=== PATIENT | female | born 1985 | race Caucasian/White ===

== ENCOUNTER 2016-09-23 16:26 | Emergency (ER) | payer SELFPAY ==
[~2016-09-23] VITALS: Ht 165.1 cm; Wt 70.9 kg
[~2016-09-23 16:26] MED LIST: MTR600X PO; OXYC5TAB PO
[2016-09-23 16:44] VITALS: TEMP 36.7; Ht 165.1 cm; Wt 70.9 kg
[2016-09-23] MEDS ORDERED: PRENTAB26 PO (16:47)
[2016-09-23] MEDS ORDERED: SODIUM CHLORIDE 0.9% 1000ML 1,000 ML IV STA ×2 (18:11)
[2016-09-23] MEDS ORDERED: ONDANSETRON INJ 2 MG/ML 2 ML VIAL IV STA (18:11)
[2016-09-23] MEDS ORDERED: TRAZ50TA35 PO (18:20)
[2016-09-23 18:45] LABS: BASO % 0.1 %; BASO ABS # 0.02 K/uL (0-0.2); COMPLETE YES; HEMATOCRIT 45.4 % (37-47); IG% 0.2 %; MEAN CELL VOLUME 88.5 fL (80-100); MEAN CORPUSCULAR HGB CONC 33.9 g/dl (32-36); MEAN PLATELET VOLUME 9.4 fL (7.4-10.4); NEUT % 88.7 %; PLATELET COUNT 299 K/uL (130-400); RED BLOOD COUNT 5.13 M/uL (4.2-5.4); WHITE BLOOD COUNT 14.35 K/uL (4.8-10.8)
[2016-09-23 19:06] LABS: PREG INTERNAL NEGATIVE QC NEG CLEAR BACKGROUND; PREG INTERNAL POSITIVE QC POS CONTROL LINE
[2016-09-23 19:18] LABS: ALB/GLOB RATIO 1.3 (0.9-2); BUN/CREATININE RATIO 21.1 (10-20); CALCIUM 9.1 mg/dl (8.5-10.1); CREATININE 0.97 mg/dl (0.60-1.20); POTASSIUM 3.8 mmol/L (3.5-5.1)
--- NOTE | 2016-09-23 19:25 | EMERGENCY ROOM VISIT NOTE ---
History First contact with patient: 18:00 Chief Complaint: DEHYDRATION Stated Complaint: DEHYDRATION, PAIN, VOMITTING Nursing Triage Summary: Patient states has been having N/V for the last 2 days. Patient states has not been able to void and has been constipated. Patient states has not been producting breast milk as much recently also. Denies diarrhea. History of Present Illness The patient is a 31 year old female who presents to the Emergency Room with complaints of vomiting and dehydration. The patient reports that she has been vomiting for the past 24 hours and has had a decreased appetite for 48 hours. She does report some abdominal cramping prior to her episodes of vomiting. She denies any diarrhea and has not had a bowel movement since the symptoms began. She also reports she has had decreased urination. She reports associated body aches and mild nasal congestion. The patient reports that her son was here 2 days ago and had not been eating and she is unsure if her symptoms are related. She rates her overall discomfort a 7/10. She has not been taking any medications for her pain. She denies any chest pain, shortness of breath, fevers/chills, headaches or neck pain. Review of Systems A complete 10-point Review of Systems was discussed with the patient, with pertinent positives and negatives listed in the History of Present Illness. All remaining Review of Systems questions can be considered negative unless otherwise specified. Past Medical/Surgical History Medical Problems: (1) Abdominal pain affecting (2) Asthma (3) Attention deficit hyperactivity disorder (4) Bipolar disorder (5) Cramping affecting , antepartum (6) Ectopic (7) Migraines (8) Obsessive-compulsive disorder (9) (10) Repair of inguinal hernia (11) RLQ abdominal pain (12) Status post fall (13) Status post fall (14) Tonsillectomy (15) Traumatic injury during in third trimester (16) Vaginal delivery (17) Vaginal discharge during in second trimester (18) von Willebrand disorder Family History Diabetes mellitus FH: heart disease FHx: gallbladder disease FHx: lung disease Hypertension Kidney disease Kidney stones Seizures Social History Smoking Status: Never Smoker Alcohol Use: occasionally Marital Status: Occupation Status: employed Current/Historical Medications Scheduled Control Pills ( Control Pills), 1 TAB PO HS Citalopram Hydrobromide (Celexa), 40 MG PO HS Fenugreek (Trigonella Foenum-G (Fenugreek), 1,220 MG PO HS Lamotrigine (Lamictal), 100 MG PO BID Multivit/Min/Iron/Fol Ac/Pren ( Vitamin), 1 TAB PO HS Ondasetron Odt (Zofran Odt), 4 MG SL Q6H Ranitidine (Zantac), 300 MG PO HS Trazodone Hcl (Trazodone), 50 MG PO HS Allergies Coded Allergies: Paroxetine (Verified Allergy, Severe, GOES CATATONIC, 03/10/16) Sumatriptan (Verified Allergy, Severe, BREATHING DIFFICULTIES AND BODY SPASM, 03/10/16) TOOK ONLY ONE DOSE FOR A MIGRAINE HEADACHE AND HAS NOT TAKEN ANY SINCE [place] [facility] (Verified Allergy, Intermediate, breathing problems- asthma flair ups, 03/10/16) Ethinyl Estradiol (Verified Allergy, Intermediate, breathing problems- asthma flair ups, 03/10/16) Levonorgestrel (Verified Allergy, Intermediate, breathing problems-asthma flair ups, 03/10/16) Bee Venom (Verified Allergy, Mild, SHORTNESS OF BREATH, 03/10/16) Dog Dander (Verified Allergy, Mild, SHORTNESS OF BREATH, 03/10/16) Tretinoin (Verified Allergy, Mild, facial flushing, 03/10/16) Physical Exam Vital Signs Date Time Temp Pulse Resp B/P Pulse Ox O2 Delivery O2 Flow Rate FiO2 09/23/16 20:24 93 18 93/66 99 09/23/16 20:14 93 18 93/66 99 Room Air 09/23/16 18:29 78 18 100/64 97 Room Air 09/23/16 16:44 36.7 99 18 98/65 97 Room Air Physical Exam VITALS: Vitals are noted on the nurse's note and reviewed by myself. Vital signs stable. GENERAL: This is a 31-year-old female, in no acute distress, nondiaphoretic, well-developed well-nourished. SKIN: Capillary reflex less than 2 seconds. HEENT: Normocephalic. PERRLA. EOMI. Nares patent. Mucous membranes moist. Neck is supple without nuchal rigidity. HEART: Regular rate and rhythm without murmurs gallops or rubs. LUNGS: Clear to auscultation bilaterally without wheezes, rales or rhonchi. ABDOMEN: Positive bowel sounds x 4. Soft, nontender to palpation. NEURO: Patient was alert and oriented to person place and time. Medical Decision & Procedures Laboratory Results 09/23/16 18:19 Red Blood Count 5.13, Mean Corpuscular Volume 88.5, Mean Corpuscular Hemoglobin 30.0, Mean Corpuscular Hemoglobin Concent 33.9, Mean Platelet Volume 9.4, Neutrophils (%) (Auto) 88.7, Lymphocytes (%) (Auto) 7.0, Monocytes (%) (Auto) 4.0, Eosinophils (%) (Auto) 0.0, Basophils (%) (Auto) 0.1, Neutrophils # (Auto) 12.72, Lymphocytes # (Auto) 1.00, Monocytes # (Auto) 0.58, Eosinophils # (Auto) 0.00, Basophils # (Auto) 0.02 09/23/16 18:19 Test 09/23/16 18:19 09/23/16 18:23 White Blood Count 14.35 K/uL (4.8-10.8) Red Blood Count 5.13 M/uL (4.2-5.4) Hemoglobin 15.4 g/dL (12.0-16.0) Hematocrit 45.4 % (37-47) Mean Corpuscular Volume 88.5 fL (80-100) Mean Corpuscular Hemoglobin 30.0 pg (25-34) Mean Corpuscular Hemoglobin Concent 33.9 g/dl (32-36) Platelet Count 299 K/uL (130-400) Mean Platelet Volume 9.4 fL (7.4-10.4) Neutrophils (%) (Auto) 88.7 % Lymphocytes (%) (Auto) 7.0 % Monocytes (%) (Auto) 4.0 % Eosinophils (%) (Auto) 0.0 % Basophils (%) (Auto) 0.1 % Neutrophils # (Auto) 12.72 K/uL (1.4-6.5) Lymphocytes # (Auto) 1.00 K/uL (1.2-3.4) Monocytes # (Auto) 0.58 K/uL (0.11-0.59) Eosinophils # (Auto) 0.00 K/uL (0-0.5) Basophils # (Auto) 0.02 K/uL (0-0.2) RDW Standard Deviation 39.5 fL (36.4-46.3) RDW Coefficient of Variation 12.3 % (11.5-14.5) Immature Granulocyte % (Auto) 0.2 % Immature Granulocyte # (Auto) 0.03 K/uL (0.00-0.02) Anion Gap 12.0 mmol/L (3-11) Est Creatinine Clear Calc Drug Dose 83.8 ml/min Estimated GFR () 90.8 Estimated GFR (Non- 78.4 BUN/Creatinine Ratio 21.1 (10-20) Calcium Level 9.1 mg/dl (8.5-10.1) Total Bilirubin 1.1 mg/dl (0.2-1) Aspartate Amino Transf (AST/SGOT) 15 U/L (15-37) Alanine Aminotransferase (ALT/SGPT) 26 U/L (12-78) Alkaline Phosphatase 134 U/L (45-117) Total Protein 7.7 gm/dl (6.4-8.2) Albumin 4.4 gm/dl (3.4-5.0) Globulin 3.3 gm/dl (2.5-4.0) Albumin/Globulin Ratio 1.3 (0.9-2) Lipase 149 U/L (73-393) Human Chorionic Gonadotropin, Qual NEG (NEG) Influenza Type A Antigen Neg for Influ A (NEG) Influenza Type B Antigen Neg for Influ B (NEG) Medications Administered Medications (Trade) Dose Ordered Sig/Iain Route Start Time Stop Time Status Last Admin Dose Admin Sodium Chloride 1,000 ml @ 999 mls/hr Q1H1M STAT IV 09/23/16 18:11 09/23/16 19:11 DC 09/23/16 18:20 999 MLS/HR Sodium Chloride (Nss 1000ml) 1,000 ml @ 999 mls/hr Q1H1M STAT IV 09/23/16 18:11 09/23/16 19:11 DC 09/23/16 19:26 999 MLS/HR Ondansetron HCl (Zofran Inj) 4 mg NOW STAT IV 09/23/16 18:11 09/23/16 18:14 DC 09/23/16 18:20 4 MG Ondansetron HCl (ZOFRAN ODT 4MG Home Pack) 1 homepack UD ONCE PO 09/23/16 20:00 09/23/16 20:01 DC 09/23/16 20:14 1 [facility] Medical Decision Differential diagnosis includes gastroenteritis, cholecystitis, appendicitis, colitis, influenza, viral syndrome, among others. The patient was evaluated as above. Labs were drawn and IV access was obtained. Imaging studies were performed and read by radiology as above. The patient was medicated with 2 L normal saline solution and 4 mg Zofran IV. The patient was reassessed multiple times during their stay in the emergency department and remained in stable condition. The patient is a 31-year-old female who presents today complaining of vomiting, diarrhea and body aches. Labs revealed a leukocytosis consistent with vomiting or mild illness. The patient's BUN was elevated consistent with dehydration. Otherwise no concerning electrolyte abnormalities. Influenza testing was negative. The patient felt significantly improved after IV hydration and IV antiemetics. She has a benign abdominal exam and her symptoms are consistent with a viral gastroenteritis. The patient was given a home pack and prescription of Zofran. She will follow-up with her primary care provider and will return sooner for any worsening symptoms. Based on the patient's presentation, lab results, and imaging studies, I feel the patient is stable for outpatient treatment. Discharge instructions were reviewed with the patient. The patient verbalized understanding of my assessment and treatment plan and was discharged home in good condition. Impression Primary Impression: Nausea, vomiting and diarrhea Departure Information Dispostion Home / Self-Care Condition GOOD Prescriptions Ondasetron Odt (ZOFRAN ODT) 4 Mg Tab 4 MG SL Q6H for Nausea, #15 TAB Prov: Carlita Vergara ., NANCY 09/23/16 Referrals Kingsley Gary M.D. (PCP) Patient Instructions My [facility] Additional Instructions You have been treated in the Emergency Department today for vomiting and Dehydration. Laboratory results have ruled out any emergent reasons for further evaluation or admission. It is ESSENTIAL that you maintain adequate hydration with oral fluids! Some suggestions include: - Water is the IDEAL replacement for lost fluids. You should initially sip at the water to help facilitate increased intestinal absorption rate and to decrease the possibility of nausea/vomiting. - Carbohydrate/Electrolyte-Containing Drinks (i.e. Gatorade, Powerade, Pedialyte). All of these are good choices, but it is important to remember that all of these drinks contain a high concentration of sugar. - Popsicles, ice chips, and fruit juices are all other options. As with all Emergency Department visits, you should follow-up with your Primary Care Provider in 2-3 days for reevaluation. You have been prescribed Zofran to be used for any nausea or vomiting. Take as prescribed. Return to the Emergency Department if your current symptoms worsen despite treatment course outlined above, or if you develop any of the following symptoms : increased thirst, weakness, dizziness, palpitations, confusion, sluggishness, fainting, inability to sweat, or decreased urine output.
[2016-09-23] MEDS ORDERED: ONDA4TAB10 SL (19:53)
[2016-09-23] MEDS ORDERED: ONDANSETRON HOME PACK 4MG OD TAB PO ONE (20:00)
[2016-09-23 20:24] VITALS: BP 93/66; PULSE 93; O2SAT 99
[2016-09-23] MEDS ORDERED: ZNTT/150 PO (22:08)
== END 2016-09-23 20:26 | disposition home or self-care (01) ==
LOC: C.EDB 16:27 → C.EDA 20:26
DX: E86.0 Dehydration (principal); R11.2 Nausea with vomiting, unspecified; R19.7 Diarrhea, unspecified; D72.829 Elevated white blood cell count, unspecified; F31.9 Bipolar disorder, unspecified; J45.909 Unspecified asthma, uncomplicated; F90.9 Attention-deficit hyperactivity disorder, unspecified type; Z79.899 Other long term (current) drug therapy; Z88.8 Allergy status to other drugs, medicaments and biological substances; Z91.030 Bee allergy status; Z91.09 Other allergy status, other than to drugs and biological substances; Z83.3 Family history of diabetes mellitus; Z82.49 Family history of ischemic heart disease and other diseases of the circulatory system; Z83.79 Family history of other diseases of the digestive system; Z84.1 Family history of disorders of kidney and ureter; Z82.0 Family history of epilepsy and other diseases of the nervous system

== ENCOUNTER 2017-04-28 14:19 | Emergency (ER) | payer SELFPAY ==
[~2017-04-28] VITALS: Ht 165.1 cm; Wt 73.0 kg
[~2017-04-28 14:19] MED LIST changes: -MTR600X PO; -OXYC5TAB PO; +PRENTAB26 PO; +TRAZ50TA35 PO; +ZNTT/150 PO
[2017-04-28 14:29] VITALS: BP 117/74; PULSE 76; TEMP 36.8; O2SAT 99; Ht 165.1 cm; Wt 73.0 kg
[2017-04-28] MEDS ORDERED: IBUPROFEN 600 MG TAB PO STA (14:37)
--- NOTE | 2017-04-28 14:47 | EMERGENCY ROOM VISIT NOTE ---
ED Visit Note First contact with patient: 14:32 CHIEF COMPLAINT: Ankle pain HISTORY OF PRESENT ILLNESS: This 31-year-old female patient presents to the emergency department ambulatory after sustaining an injury to the left ankle and foot with a twisting, inversion motion when she was walking across a dam that was made up of rocks and she fell. Complains of moderate swelling and pain. The patient complains of pain along the outside of the ankle. The patient does have pain of the foot. The patient rates the pain as sharp and 7/ 10. There was no audible pop. The patient is not able to bear weight on the foot. Constant pain, worse with movement, weight bearing, and the dependent position. No knee pain, the patient is able to move their toes. No numbness or weakness of the foot, no laceration. The patient has not had a previous injury to this ankle. The patient has taken nothing for the pain. The patient denies any other injury. REVIEW OF SYSTEMS: A 6 system review of systems was completed with positives and pertinent negatives listed in the HPI. ALLERGIES: See nursing notes MEDICATIONS: See nursing notes PMH: Patient's states "a whole host" of medical problems SOCIAL HISTORY: The patient lives locally with family PHYSICAL EXAM: Vital Signs: Reviewed Nurse's notes, vital signs stable. GENERAL : Since the 31-year-old female, no acute distress, but appears in pain, well- developed, well-nourished. MENTAL STATUS: Alert, oriented to person place and time, and cooperative. MUSCULOSKELETAL: The left ankle is swollen and tender over the lateral malleolus, but the skin is intact and there is no ligamentous instability. There is moderate fifth metatarsal tenderness. There is no tenderness over the rest of the foot. There is mild proximal fibular tenderness. There is no visual deformity. The foot and toes are warm and well- perfused. Dorsalis pedis pulse 2+. Sensation to pain and light touch is intact. Capillary refill less than 2 seconds. EMERGENCY DEPARTMENT COURSE: I examined the patient. X-rays of the left ankle, foot and tib/fib were reviewed by myself and read by radiology and reveal no fracture or dislocation. A post op shoe was applied to the foot under my direction and the position was satisfactory. Neurovascular status was rechecked and intact. She declined crutches stating that she has them at home. The patient was discharged home in good condition. LEFT TIBIA/FIBULA 2 VIEWS ROUTINE, LEFT ANKLE MIN 3 VIEWS ROUTINE, LEFT FOOT MIN 3 VIEWS ROUTINE HISTORY: 31 years-old Female fall, left leg pain acute left lower extremity pain status post fall. Initial exam. COMPARISON: None available. TECHNIQUE: 2 views of the left tibia and fibula, 3 views of the left foot and 3 views of the left ankle. FINDINGS: TIBIA/FIBULA: Bone mineralization is within normal limits. No acute fracture, dislocation or significant degenerative changes. ANKLE: Focal area of 1.6 x 0.6 cm sclerosis is noted involving the lateral aspect of the distal tibial metaphysis medullary space suggesting enostosis (bone island). No acute fracture, dislocation or significant degenerative changes. No osteochondral defect. FOOT: Note is made of a bipartite lateral hallux sesamoid. Mild first MTP joint degenerative changes are noted. There is no acute fracture or dislocation. Negative for radiopaque foreign body. IMPRESSION: 1. No acute fracture or dislocation of the left tibia, fibula, foot or ankle. 2. Bone island of the distal tibia. 3. Mild first MTP joint degenerative changes. Problem List Medical Problems: (1) Asthma Status: Chronic (2) Attention deficit hyperactivity disorder Status: Chronic (3) Bipolar disorder Status: Chronic (4) Ectopic Status: Resolved (5) Migraines Status: Chronic (6) Obsessive-compulsive disorder Status: Chronic (7) Repair of inguinal hernia Status: Resolved (8) Tonsillectomy Status: Resolved (9) Vaginal delivery Status: Resolved (10) von Willebrand disorder Status: Chronic Current/Historical Medications Scheduled Control Pills ( Control Pills), 1 TAB PO HS Citalopram Hydrobromide (Celexa), 40 MG PO HS Fenugreek (Trigonella Foenum-G (Fenugreek), 1,220 MG PO HS Lamotrigine (Lamictal), 100 MG PO BID Venlafaxine Hcl (Effexor Xr), 75 MG PO DAILY Allergies Coded Allergies: Paroxetine (Verified Allergy, Severe, GOES CATATONIC, 03/10/16) Sumatriptan (Verified Allergy, Severe, BREATHING DIFFICULTIES AND BODY SPASM, 03/10/16) TOOK ONLY ONE DOSE FOR A MIGRAINE HEADACHE AND HAS NOT TAKEN ANY SINCE [facility] (Verified Allergy, Intermediate, breathing problems- asthma flair ups, 03/10/16) Ethinyl Estradiol (Verified Allergy, Intermediate, breathing problems- asthma flair ups, 03/10/16) Levonorgestrel (Verified Allergy, Intermediate, breathing problems-asthma flair ups, 03/10/16) Bee Venom (Verified Allergy, Mild, SHORTNESS OF BREATH, 03/10/16) Dog Dander (Verified Allergy, Mild, SHORTNESS OF BREATH, 03/10/16) Tretinoin (Verified Allergy, Mild, facial flushing, 03/10/16) Vital Signs Date Time Temp Pulse Resp B/P (MAP) Pulse Ox O2 Delivery O2 Flow Rate FiO2 04/28/17 14:29 36.8 76 18 117/74 99 Room Air Medications Administered Medications (Trade) Dose Ordered Sig/Iain Route Start Time Stop Time Status Last Admin Dose Admin Ibuprofen (Motrin Tab) 600 mg NOW STAT PO 04/28/17 14:37 04/28/17 14:39 DC 04/28/17 14:37 600 MG Departure Information Impression Primary Impression: Foot sprain Dispostion Home / Self-Care Condition GOOD Referrals No Doctor, Assigned (PCP) Marty Salas, DO Patient Instructions ED Sprain Foot, [facility] Additional Instructions Ice and elevation for 2 days, use crutches to avoid weight bearing until you can walk without significant pain, wear the splint 7-14 days or until pain subsides. Do not get the splint wet. Ibuprofen, 600 mg and Tylenol 1000 mg every 6 hours if needed for pain. No more than 4 g of Tylenol in 24 hours. See your doctor or an orthopedic surgeon if there is no improvement in 5-7 days. Problem Qualifiers Primary Impression: Foot sprain Encounter type: initial encounter Laterality: left Qualified Codes: S93.602A - Unspecified sprain of left foot, initial encounter
--- NOTE | 2017-04-28 15:19 | DIAGNOSTIC IMAGING REPORT ---
LEFT TIBIA/FIBULA 2 VIEWS ROUTINE, LEFT ANKLE MIN 3 VIEWS ROUTINE, LEFT FOOT MIN 3 VIEWS ROUTINE HISTORY: 31 years-old Female fall, left leg pain acute left lower extremity pain status post fall. Initial exam. COMPARISON: None available. TECHNIQUE: 2 views of the left tibia and fibula, 3 views of the left foot and 3 views of the left ankle. FINDINGS: TIBIA/FIBULA: Bone mineralization is within normal limits. No acute fracture, dislocation or significant degenerative changes. ANKLE: Focal area of 1.6 x 0.6 cm sclerosis is noted involving the lateral aspect of the distal tibial metaphysis medullary space suggesting enostosis (bone island). No acute fracture, dislocation or significant degenerative changes. No osteochondral defect. FOOT: Note is made of a bipartite lateral hallux sesamoid. Mild first MTP joint degenerative changes are noted. There is no acute fracture or dislocation. Negative for radiopaque foreign body. IMPRESSION: 1. No acute fracture or dislocation of the left tibia, fibula, foot or ankle. 2. Bone island of the distal tibia. 3. Mild first MTP joint degenerative changes. The above report was generated using voice recognition software. It may contain grammatical, syntax or spelling errors. Electronically signed by: Sony Galarza M.D. 04/28/2017 3:18 PM Dictated Date/Time: 04/28/2017 3:11 PM
[2017-04-28] MEDS ORDERED: VENL75CA PO (15:35)
[2017-04-28] MEDS ORDERED: LAMO100T16 PO (16:51)
[2017-04-28] MEDS ORDERED: BCPILLS PO (18:20)
[2017-04-28] MEDS ORDERED: CITA40TA12 PO (18:20)
[2017-04-28] MEDS ORDERED: FENU1CAP2 PO (18:22)
== END 2017-04-28 16:01 | disposition home or self-care (01) ==
LOC: C.EDB 14:20 → C.EDD 16:01
DX: S93.602A Unspecified sprain of left foot, initial encounter (principal); W19.XXXA Unspecified fall, initial encounter; Y92.821 Forest as the place of occurrence of the external cause; J45.909 Unspecified asthma, uncomplicated; F90.9 Attention-deficit hyperactivity disorder, unspecified type; F31.9 Bipolar disorder, unspecified; G43.909 Migraine, unspecified, not intractable, without status migrainosus; F42.9 Obsessive-compulsive disorder, unspecified; D68.0 Von Willebrand disease; Z79.3 Long term (current) use of hormonal contraceptives; Z79.899 Other long term (current) drug therapy

== ENCOUNTER 2024-12-14 07:42 | Inpatient (IN) ==
--- OUTSIDE RECORDS SUMMARY | 2024-12-14 09:36 | External Medical Summary | Summary of Care ---
Author Name Unknown Organization [facility] Address [address] [place] [address] Phone [phone] Care Team Providers Care Youth Manager Name Role Phone Dayan Le DO Primary Care Provider Reason for Visit * Reason Comments Return Visit Encounter Details Date Type Department Care Team (Late st Contact Info) Description 11/11/2024 8:45 AM EDT Office Visit Gynecology/Obstetri Aubrey Cerda [address] [facility] [place] [id number] Mary Cobb CRNP [address] [place] [address] Nurse Iliana Cerda [facility] [address] [place] [address] High-risk in third trimester*; Von Willebrand's disease (HCC); Bipolar disease during in third trimester (HCC); History of pre-eclampsia in prior , currently ; History of asthma; Family history of autism; Health counseling; Multigravida of advanced maternal age in third trimester; with history of ectopic , antepartum; Vapes nicotine containing substance; Family history of congenital anomaly; History of delivery, currently ; Psychogenic nonepileptic seizure; Medical marijuana use; Diet controlled gestational diabetes mellitus (GDM) in third trimester Allergies Active Allergy Reactions Criticality Noted Date Comments Bee Venom Edema Other,Itching 04/01/2014 Blue Dyes (Parenteral) 11/14/2014 [place] blue dye Dog Dander Wheezing 04/01/2014 Asthma attacks Duloxetine Psych complications High 03/29/2015 Caused manic episode Ethinyl Estradiol High 03/05/2020 Other Reaction(s): breathing problems-asthma flair ups Paroxetine 12/01/2002 somnulence/increase d depression Tretinoin Flushing,Other (Colton bower comment) 01/13/2015 Reddened, flaking skin documented as of this encounter (statuses as of 11/11/2024) Medications QUEtiapine Fumarate ER 150 MG Oral Tablet Extended Release 24 Hour (SEROquel XR) Take 1 Tablet by mouth at bedtime. 90 Tablet 10/15/19 24 Active Additional Information Patient taking differently:150 mg Oral HS,Taking 250mg at night, Reported on 11/11/2024 Albuterol Sulfate (2.5 MG/3ML) 0.083% Inhalation Nebulization Solution (Proventil) Inhale 1 Vial via nebulizer every 4 hours as needed for Wheezing. 120 mL 5 02/24/20 24 Active Desmopressin Acetate [place] 0.01 % Nasal Solution Administer 1 [place] into nostril at bedtime. 5 mL 11 05/18/2024 3:50 PM EDT 05/03/20 24 Active lamoTRIgine 200 MG Oral Tablet (LaMICtal) Take 1 Tablet by mouth in the morning and 1 Tablet before bedtime. Active Proventil HFA 108 (90 Base) MCG/ACT Inhalation Aerosol Solution inhale 2 puffs by mouth every 4 hours as needed for wheezing 20.1 g 07/19/20 24 Active Plus 27-1 MG Oral Tablet Take 1 Tablet by mouth in the morning. 100 Tablet 3 08/02/20 24 Active Nystatin [id number] UNIT/ML Mouth/Throat Suspension Swish and spit 5 mL in the morning and 5 mL at noon and 5 mL in the evening and 5 mL before bedtime. 60 mL 09/27/19 25 Active Additional Information Patient not taking.Reported on 11/11/2024 Digital Lumens System w/Device KitIndications:Ges tational diabetes mellitus (GDM) in third trimester, gestational diabetes method of control unspecified Use to test blood sugars 4 times daily (fasting, 1 hour after breakfast, lunch, and dinner) 1 Kit 10/06/19 25 Active OneTouch Verio In Vitro Strip (Glucose Blood)Indications: Gestational diabetes mellitus (GDM) in third trimester, gestational diabetes method of control unspecified Use to test blood sugars 4 times daily (fasting, 1 hour after breakfast, lunch, and dinner) 125 Strip 6 10/06/19 25 Active OneTouch Delica Lancets 30GIndications:Ges tational diabetes mellitus (GDM) in third trimester, gestational diabetes method of control unspecified Use to test blood sugars 4 times daily (fasting, 1 hour after breakfast, lunch, and dinner) 200 Each 6 10/06/19 25 Active Famotidine 20 MG Oral Tablet (Pepcid) Take 1 Tablet by mouth in the morning and 1 Tablet before bedtime. 60 Tablet 3 10/26/19 25 Active Ondansetron 4 MG Oral Tablet Disintegrating (Zofran) Place 1 Tablet on tongue every 8 hours as needed for Nausea. dissolve on tongue. 20 Tablet 1 10/26/19 25 Active documented as of this encounter (statuses as of 11/11/2024) Active Problems Problem Noted Date Diagnosed Date Gestational diabetes mellitus (GDM) in third [facility] 10/06/2024 Overview (10/25/2024): Diagnosed at 29 weeks, failed 3 hour gtt MFM and diabetes education referral placed. Pt declined MFM. High-risk 07/07/2024 History of delivery, currently 05/17/2024 Overview (05/18/2024): History of delivery at 36w gestation in 2009 Followed by full-term delivery in 2016 Denies prior Monserrat use. Assessment & Plan (05/17/2024 12:24 PM EDT): CONSIDERATIONS: Patient is at high risk to have a recurrent delivery (PTD): 3.6-fold higher with one prior PTD and the risk increases with the number of previous PTDs. Discussed modifiable risk factors (e.g., infections, tobacco/substance abuse, severe anemia, and poor nutrition). Previous studies showed that 17 alpha-hydroxyprogesterone (17P) could decrease the risk of recurrent PTD by up to 50% in women with previous spontaneous PTD prior to 37 weeks. However, follow-up studies failed to confirm these results and 17P has since been withdrawn from the market by the FDA due to lack of efficacy. There is some evidence that vaginal micronized progesterone 200 mg may reduce the risk for recurrent spontaneous . It can be prescribed as either a compounded suppository or as oral Prometrium capsules placed intravaginally at bedtime. RECOMMENDATIONS: Consider nightly vaginal progesterone, particularly in patients who previously received 17P. Patient's primary MACHINE INSTALLER can coordinate therapy if desired. For patients with a history of delivery/prolonged PROM between or after 34 weeks, we do not recommend cervical length monitoring. Medical marijuana use 05/17/2024 Overview (05/17/2024): History of medical marijuana use - stopped with knowledge of the Urine toxicology screen on 05/14/2024 +cannabinoids Assessment & Plan (05/18/2024 11:25 AM EDT): CONSIDERATIONS: Chemicals found in marijuana, such as tetrahydrocannabinol (THC), are distributed to the brain and fat and cross the placenta. THC also appears in breast milk. In utero exposure is associated with short and long-term morbidity. A positive screen result is reported to [facility]. RECOMMENDATIONS: Abstain from marijuana use in and while ; avoid secondhand exposure. Discontinue use of marijuana for medicinal purposes in favor of an alternative therapy for which there are better -specific safety data. Health counseling 05/14/2024 Overview (09/03/2024): Problem Action Taken Date entered Entered by Date resolved Advance maternal age Maternal Medicine Consult 05/14/2024 Diane Figueroa RN 05/14/2024 Depression Discuss options with Provider Use of medication Referral to psychological services 05/14/2024 Diane Figueroa RN 05/14/2024 Fatigue Schedule a short nap if possible Take vitamins Good nutrition and hydration will help Exercise every day will help regulate the extremes 05/14/2024 Diane Figueroa RN 05/14/2024 High Risk Provider referral to Maternal Medicine 05/14/2024 Diane Figueroa RN 05/14/2024 History of labor Maternal Medicine consult 05/14/2024 Diane Figueroa RN 05/14/2024 Lack of knowledge regarding Labor & Delivery Encourage childbirth education classes and Education class schedule given to patient 05/14/2024 Diane Figueroa RN 05/14/2024 Lack of knowledge of community services Care Management Consult 05/14/2024 Diane Figueroa RN 05/14/2024 Need for baby supplies Distribute cribs letter Refer to local support centers 05/14/2024 Diane Figueroa RN 05/14/2024 Poor dental hygiene encourage routine brushing and flossing and referal to local dental clinic that accepts [place] insurances 05/14/2024 Diane Figueroa RN 05/14/2024 Smoking/tobacco abuse Smoking Education 05/14/2024 Diane Figueroa RN 05/14/2024 Problem Action Taken Date entered Entered by Date resolved Hip pain MFM appt Planning to use a wheelchair as she did in prior pregnancies. Pt unable to go due to transportation county transport discussed. She is aware 07/07/2024 Therese Zambrano RN 07/07/2024 Problem Action Taken Date entered Entered by Date resolved Current needs or questions Patient denies having any current needs or questions 08/02/2024 Polly Guzman RN 08/02/2024 Problem Action Taken Date entered Entered by Date resolved Current needs or questions Patient denies having any current needs or questions 09/03/2024 Therese Zambrano RN 09/03/2024 Assessment & Plan (11/11/2024 9:22 AM EDT): Problem Action Taken Date entered Entered by Date resolved Current needs or questions Patient denies having any current needs or questions 11/11/2024 Therese Zambrano RN 11/08/2024 Assessment & Plan (10/25/2024 9:36 AM EST): Problem Action Taken Date entered Entered by Date resolved Current needs or questions See nurses note Patient denies having any current needs or questions 10/25/2024 Therese Zambrano RN 10/25/2024 Assessment & Plan (09/27/2024 12:28 PM EST): Problem Action Taken Date entered Entered by Date resolved Dental issues See nurses note 09/27/2024 Therese Zambrano RN 09/27/2024 Elderly multigravida 05/14/2024 Overview (05/17/2024): Age 39YO at AUGUSTINA NIPT ordered Assessment & Plan (05/17/2024 12:22 PM EDT): CONSIDERATIONS: We reviewed the most pertinent aspects of the following: Advanced maternal age (AMA) refers to a woman with a molina who will be at the age of 35 or older at the estimated time of delivery and may be associated with increased morbidity. After discussion of the genetic screening/testing options, the patient desires cffDNA screening, and testing was coordinated by OB. Cell-free DNA (cffDNA) screening is a genetic screening option that analyzes maternal blood for DNA that is placental in origin and targets the following conditions: Trisomy 21 (Down syndrome), trisomy 18, trisomy 13, and sex chromosome abnormalities such as monosomy X (Wade syndrome), and sex chromosome trisomies (triple X, Klinefelter syndrome, XYY). It may also evaluate for other genetic alterations such as microdeletions, depending on the specific test. It reveals the sex of the fetus but should generally not be performed solely for this indication. Results provided are NOT diagnostic, but provide a risk estimate. Types of results include low-risk/negative, high-risk/positive, and inconclusive. Low-risk results convey a low risk for the conditions screened, while high-risk results will indicate which condition is high risk and the likelihood of the condition based on the results. High-risk and inconclusive results would require follow up with a Maternal- Medicine genetic counselor. Amniocentesis would be recommended in the setting of high-risk results. Cost of cffDNA screening is dependent on health insurance plan. Offer MSAFP only (not Quad Screen) at 16-22 weeks if screening for open neural tube defects is desired. Amniocentesis for diagnosis of chromosomal abnormalities is also available. The risk of complications from the procedure and that risk is 1 in 500 (0.2%). In addition to the risk of chromosomal abnormalities, there is an increased risk of congenital/structural anomalies. RECOMMENDATIONS: Recommend MFM anatomy ultrasound at 19-20 weeks gestation. with history of ectopic , ant epartum 05/14/2024 Overview (05/18/2024): History of ectopic in 2012 w/ laparoscopic salpingostomy. Current per 04/30/2024 U/S: "IMPRESSION - Single live intrauterine gestation" Vapes nicotine containing substance 05/14/2024 Overview (05/18/2024): Admits to vaping nicotine - reports weaning since knowledge of the with a goal of quitting in near future Assessment & Plan (05/17/2024 12:23 PM EDT): Data is limited with regards to adverse outcomes associated with use of electronic cigarettes, however it exposes the woman and fetus to nicotine and other harmful or potentially harmful substances, are not associated with any health benefits, and should be avoided in . Family history of congenital anomaly 05/14/2024 Overview (05/18/2024): Reports her youngest son had a "urachal anomaly" (leaking urine from belly button) - that required surgical repair at 7 months old. Assessment & Plan (05/17/2024 12:21 PM EDT): Recommend anatomy scan with Maternal Medicine. Recommend genetic counseling referral. Absence seizure 06/15/2021 Advance directive declined by patient 09/14/2015 Overview (09/14/2015): No, Advance Directive brochure offered, patient declined. History of asthma 09/14/2015 Overview (05/18/2024): History of asthma Reports well controlled by avoiding triggers Managed with albuterol as needed 05/18/24: last albuterol use was 8-9 months ago Assessment & Plan (05/18/2024 11:37 AM EDT): CONSIDERATIONS: Asthma symptoms may improve, worsen or remain unchanged in severity in . Asthma is generally managed the same in as in the non- patient, as asthma-control medications are considered safe in . If asthma is well-controlled with medications prior to , it is recommended to continue the same medication regimen during . A patient should seek medical care immediately if an asthma flare does not respond to therapy. Mild and well-controlled moderate asthma can be associated with excellent maternal and outcomes. Severe and poorly controlled asthma may be associated with increased morbidity and mortality. Asthma management includes monitoring of lung function with pulmonary function testing (when indicated), avoidance of triggers (such as tobacco smoke, mold, dust mite exposure, animal dander and cockroaches), and a step-care approach to pharmacologic therapy based on the severity of the patient's asthma. RECOMMENDATIONS: Inhaled corticosteroids are the mainstay of therapy for all patients except those with intermittent asthma. If patients are routinely requiring rescue inhaler (such as albuterol, Ventolin, ProAir, Atrovent, or Proventil) use more than twice weekly, we recommend adding a low-dose inhaled corticosteroid. [Pulmicort (budesonide) is preferred to use in .] If patients are routinely requiring rescue inhaler use daily, we recommend adding a combined low-dose inhaled corticosteroid/long-acting beta-agonist [such as Advair (fluticasone/salmeterol) or Symbicort (budesonide/formoterol)] or a medium dose inhaled corticosteroid. Patient should discuss these treatment options with her primary OB provider or PCP. Typically, patients do not need stress dose steroids as long as they continue their usual dose perioperatively (or during labor) and do not have primary renal failure or other problems with the pituitary axis. Medications such as prostaglandin F2a (including Hemabate), ergonovine, and indomethacin (in patients who are aspirin allergic) should be used with caution. Patients with moderate or severe persistent asthma should have Maternal- Medicine ultrasound for anatomy at 19-20 weeks. surveillance with growth ultrasounds and non-stress tests should be considered starting at 32 weeks. History of pre-eclampsia in prior , currently 08/24/2015 Overview (05/18/2024): History of preeclampsia in 2009 . Denies history of chronic hypertension. BP Readings from Last 5 Encounters: 05/14/24 106/64 04/15/24 114/70 01/08/24 118/74 01/31/23 124/78 11/15/22 100/70 Baseline preeclampsia labs ordered. Lab Results Component Value Date/Time PROTEIN/ CREATININE RATIO, URINE - GRACIELAER 71 05/14/2024 11:47 AM Reports unable to take bASA therapy d/t history of Von Willebrand's disease. Assessment & Plan (05/18/2024 11:25 AM EDT): CONSIDERATIONS: Discussed that the overall recurrence rate for pre-eclampsia is 20%. The recurrence risk of pre-eclampsia is 5-7% if it was uncomplicated pre-eclampsia in the prior . If it was pre-eclampsia with severe features in the prior , the recurrence risk goes up to 30-65%. Explained to patient that risk factors for development of pre-eclampsia include the primigravid state, history of pre-eclampsia in previous , family history of pre-eclampsia, presence of chronic hypertension, increased BMI, multiple gestation, pre-existing maternal renal disease or diabetes, advanced maternal age, antiphospholipid syndrome and other coagulopathies, chronic maternal autoimmune disease, or prolonged interval between pregnancies. Discussed with patient that the risks associated with a diagnosis of pre- eclampsia which is not monitored and not managed appropriately include development of HELLP syndrome or eclampsia (seizures) and end organ damage to liver, brain, kidneys, or fetus (manifested by growth restriction or ), and even maternal . RECOMMENDATIONS: Recommend baseline pre-eclamptic labwork be done early in subsequent pregnancies to include CBC, AST/ALT, creatinine, and 24 hour total urine protein. Patients should be monitored closely in subsequent pregnancies for signs of pre-eclampsia and managed appropriately to reduce the incidence of associated maternal and risks. Reviewed that pre-eclampsia and HELLP are not preventable conditions. There is some evidence that daily ASA 81mg may decrease the risk for recurrence in patients with a history of pre-eclampsia. Migraine variant 09/11/2009 Vertigo 11/04/2008 Overview (11/10/2008): Being evaluated and managed by Neuro Pt has cancelled all further visits with neuro Bipolar disease during 03/07/2004 Overview (05/18/2024): History of bipolar disorder, depression, anxiety, and ADHD [facility] Reports Psychiatry (Carol Barr) is aware of - has visits q 4-6 weeks. Managed on Lamictal and Seroquel Reports she stopped Adderal, Effexor XR, Gabapentin with knowledge of the (~4-5 weeks gestation) under direction of her provider. Reports weekly appointments with therapy Reports having had PP depression requiring hospitalization following her first ; denies history of psychosis. Reports a stable mood in . Denies any suicidal or homicidal ideation. Reports she has a good support system at home. Assessment & Plan (05/18/2024 11:23 AM EDT): CONSIDERATIONS: and delivery can worsen the symptoms of bipolar disorder. and women have a sevenfold higher risk of hospital admission than those who have not recently been . Rates of relapse range from 32% to 67%. There also is an increased risk of psychosis as high as 46%. Stopping treatment may increase the risk of recurrent mood episodes, particularly if medications are discontinued abruptly (eg, in less than two weeks). Women who discontinue medication within 6 months of conception are more than twice as likely to suffer a recurrence of the disease. RECOMMENDATIONS: For bipolar patients who are , we suggest maintenance pharmacotherapy rather than no treatment. However, for patients with a mild lifetime course of illness, it is reasonable to try to avoid pharmacotherapy during . The decision to treat bipolar disorder during should be determined on an individualized basis and treatment should be provided by general psychiatrists in collaboration with obstetricians and primary care clinicians. Medication exposures: We review the risks and benefits of medication to promote discussion between the prescribing provider and patient but ultimately it is the patient and prescribing provider's decision. Discussed with patient that, as with most medications in , it is important to consider risk to the fetus versus risk of untreated mental illness. In some cases it is reasonable to continue these medications in , but this must be determined on an individualized basis. Recommend patient continue close follow- up with psychiatry and/or prescribing provider throughout and the period for monitoring and management of symptoms and medications. Lamictal (Lamotrigine). Crosses the placenta and can be measured in the plasma of exposed newborns. An overall increase in the risk for major congenital malformations has not been observed in available studies; however, an increased risk for cleft lip or cleft palate has not been ruled out. An increased risk of malformations following maternal lamotrigine use may be associated with larger doses. Lamotrigine is relatively safer than other seizure medications. Folic acid supplementation is recommended prior to and during when taking lamotrigine. Due to -induced physiologic changes, women who are may require dose adjustments of lamotrigine in order to maintain clinical response; monitoring during should be considered. Data is very limited regarding use of lamotrigine during , so it is recommended that it be used only if the potential benefits outweigh the risks. Seroquel (Quetiapine). Crosses the placenta and can be detected in cord blood. Congenital malformations have not been observed in humans (based on available data). Antipsychotic use during the third trimester of has a risk for abnormal muscle movements (extrapyramidal symptoms) and/or withdrawal symptoms in newborns following delivery. Symptoms in the may include agitation, feeding disorder, hypertonia, hypotonia, respiratory distress, somnolence, and tremor; these effects may be self-limiting or require hospitalization. The ACOG recommends that therapy during be individualized; treatment with psychiatric medications during should incorporate the clinical expertise of the mental health clinician, shelter director, primary health care provider, and council member. Safety data related to atypical antipsychotics during are limited; as such, routine use is not recommended. However, if a woman is inadvertently exposed to an atypical antipsychotic while , continuing therapy may be preferable to switching to an agent that the fetus has not yet been exposed to; consider risk:benefit. If treatment is initiated during , use of quetiapine may be considered. Obsessive-compulsive disorder 03/07/2004 Attention deficit disorder without hyperactivity 03/07/2004 Psychogenic nonepileptic seizure 08/25/2003 Overview (05/18/2024): History of psychogenic nonepileptic seizures Reports she "blanks out" when they occur Denies episodes while on Lamictal Follows with [facility] Assessment & Plan (05/18/2024 11:34 AM EDT): CONSIDERATIONS: Psychogenic nonepileptic seizures (PNES) are events thought to have mainly psychologic origins. PNES include a variety of clinical manifestations. PNES is often associated with psychiatric conditions such as major depressive disorders, anxiety or bipolar disorder,posttraumatic stress disorder, and borderline personality traits. There is little evidence for any treatment for PNES. Psychological intervention is mainly used, including CBT approaches. Pharmacotherapy is not effective for PNES but should be used as indicated to treat psychiatric comorbidity. Consider Neurology follow-up as needed. Von Willebrand's disease 08/08/2003 Overview (10/27/2024): History of Von Willebrand's disease Family history of VWD in her father Last visit with [facility] in 2018. Reports she had bleeding after her first delivery, but did not require a transfusion. She has DDAVP to use as needed but has not used it in several (4+) years. Genetic counseling referral is scheduled 05/20/2024. Per hematology 10/2024: During the delivery, DDAVP should be available in case if she has significant bleeding. Pt uses 5 ml nasal spray QHS Assessment & Plan (05/18/2024 11:36 AM EDT): Discussed that pregnancies for women with von Willebrand's disease should be managed normally and delivery route determined by the usual obstetric indications. Factor VIII level should be checked periodically during the and treatment is generally reserved for levels below 25% of normal. Serious bleeding is rare if the Factor VIII level is higher than 25% of normal. DDAVP is generally the treatment of choice with cryoprecipitate as the alternative. Recommend referral to Hematology for ongoing evaluation and management. Recommend genetic counseling referral. Consider anesthesia referral antepartum. Major depressive disorder 04/15/2003 Overview (06/17/2017): ICD-10 update of inactive term Family history of autism Overview (05/18/2024): Personal history of Asperger's and autism - reports "internalized" type States her 2 sons also have a history of autism. Assessment & Plan (05/18/2024 11:40 AM EDT): Consider genetic counseling referral. Autism spectrum disorder Estimated Date of Delivery Comme nts Yes 12/15/2024 Based on last me nstrual period of 03/10/2024 (Exact Date) documented as of this encounter (statuses as of 11/11/2024) Resolved Problems Problem Noted Date Diagnosed Date Resolved Date Low-lying placenta 08/02/2024 Overview (08/02/2024): Found on anatomy ultrasound, 1.9 cm on preliminary results. Recommended pelvic rest until resolution. Food insecurity 12/03/2021 05/06/2024 Overview: Per [facility] Protocol Diarrhea of presumed infectious origin 05/19/2018 12/08/2019 Nausea 05/19/2018 12/08/2019 Carrier of group B Streptococcus 10/19/2015 03/29/2016 Overview (10/19/2015): + GBS in urine cx at 18wks First trimester screening 09/14/2015 Depression complicating , antepartum 09/14/19 16 06/10/2017 Headache in 09/14/20152016 Supervision of high-risk 08/24/2015 03/29/2016 Overview (01/31/2016): MFM consult Problem Action Taken Date entered Entered by Date resolved Nausea and vomiting due to Nutrition Review 9 months booklet 08/24/15 Chanel Leigh RN 08/24/15 Problem Action Taken Date entered Entered by Date resolved Nutrition WIC referral 08/24/15 Chanel Leigh RN 08/24/15 Problem Action Taken Date entered Entered by Date resolved Vag infection Seen by provider 10/16/2015 Therese Zambrano RN Problem Action Taken Date entered Entered by Date resolved housing Pt moved this past weekend. Doing well. Adjusting to new house. 10/24/2015 Therese Zambrano RN Problem Action Taken Date entered Entered by Date resolved Current needs or questions Patient denies having any current needs or questions 11/10/2015 Chanel Leigh RN 11/10/15 Problem Action Taken Date entered Entered by Date resolved Thigh pain Working with [facility] for this. 12/06/2015 Therese Zambrano RN Problem Action Taken Date entered Entered by Date resolved Abnormal 1 hour glucose test Needs 3 hour glucose test 01/19/2016 Chanel Leigh, NICKI 01/19/16 Problem Action Taken Date entered Entered by Date resolved Hip pain Seeing Dr. Gary tomorrow and Ortho as well. 01/31/2016 Therese Zambrano, NICKI Having a son. Planning circumcision. 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 Uses lamictal to control these and her bipolar dz We typically do not recommend additional folate or vit k supplementation for those on lamictal. She should continue to take her vitamins. (per Dr. Schreiber) Asthma, mild persistent 04/12/201308/26 Pre-eclampsia, mild, antepartum 11/26/2008 08/24/2015 Headache 11/26/2008 06/10/2017 Overview (11/15/2015): ICD-10 update of inactive term Proteinuria 11/25/2008 08/24/2015 Overview (11/25/2008): / 2866 mg protein in 24 hr urine, labs wnl and normotensive, no UTI on recent cx - discussed with MFM-will see on Friday, get labs today and pre-e precautions Antepartum abnormal glucose tolerance of mother 10/07/2008 08/24/2015 Overview (10/14/2008): 1 hr glucola -- 149 3 hr GTT ordered -- OK HBP GW 06/03/2008 08/24/2015 INFORMATION-External labs 06/03/2008 Overview (08/08/2008): Pt is transfer from [facility]-does not have records with her Action/Plan/Outcome: Pap 04/14/08- WNL Pt needs cervical cultures at next visit, not found in [facility] records-chlamydia and gonorrhea neg.08/01 Pt having records resent to our office as we did not receive her testing thus far-discussed at 20w visit documented as of this encounter (statuses as of 11/11/2024) Immunizations Name Administration Dates Next Due COVID-19 mRNA, LNP-s, No Pre serve, 2-Dose Series (Pfizer) 10/14/2020 DTP Vaccine 05/25/2015 DTaP Dipth/Tet/Acell Pertussis (Infanrix), Peds 04/07/1992 H1N1 2009 Influenza, IM 07/15/2009 HPV Vaccine, 4-Valent 01/01/2006,08/03/2005,05/25 Haemophilius B (HIB), unspecified 05/27/1989 Hepatitis B, 0-19 yrs 12/29/1998,07/17/1998,05/26 MMR - Measles/Mumps/Rubella Vaccine 02/07/1998,0 01/19/1988 OPV - Polio Virus Vaccine (Oral) 04/07/1992 PPD 06/15/2021, 0,01/14/2018,2014,04/01/2014,10/18/2011,03/07/2004 Seasonal Influenza Vac., MDV , IM, 0.5 mL (Fluzone) 06/30/2008,06/15/1998 TD - Tetanus/Diptheria (ADULT) 08/30/2002 TDAP (age 10 and older)(Boostrix) 04/01/2014 TDAP, Age 7 and older, IM (Adacel) 09/27/2024 Varicella Vaccine (Chicken Pox) 04/24/1995 documented as of this encounter Social History Tobacco Use Types Packs/Day Years Used Date Smoking Tobacco: Never Smokeless Tobacco: Never Alcohol Use Standard Drinks/Week Comments Not Currently 0 (1 standard drink = 0.6 oz pur e alcohol) denies in AUDIT-C Answer Date Recorded Frequency of Alcohol Consumption 2-4 times a fri06/07/2020 Average Number of Drinks Not asked 020 Frequency of Binge Drinking Not asked 05/25 PHQ-2 Answer Date Recorded PHQ-2 Score 22 02/10/2020 Hunger Vital Sign Answer Date Recorded Within the past 12 months, y ou worried that your food would run out before you got the money to buy more. Patient declined Within the past 12 months, t he food you bought just didn't last and you didn't have money to get more. Patient declined [place] Depression Scale Answer Date Recorded [place] Depression Scale Total 22 10/25/2024 The thought of harming myself has occurred to me . Never 10/25/2024 Childcare Answer Date Recorded Do you feel overwhelmed with taking care of a child, family member or friend? No 07/19/2024 Does your family need help f inding childcare? (Household - for ages 0-17 years) Not on file 07/19/2024 Clothing Answer Date Recorded Have you been unable to get clothing when it was really needed? No 07/19/2024 Is your family able to get c lothes or diapers when needed? (Household - for ages 0-17 years) Not on file 07/19/2024 Personal Safety Answer Date Recorded Do you feel unsafe or have concerns for your saf ety? No 07/19/2024 Do you have concerns for you r family's safety? (Household - for ages 0-17 years) Not on file 07/19/2024 Utilities Answer Date Recorded Do you have trouble paying y our heating, water, or electric bill? No 07/19/2024 Is your family able to pay t he heat, water, or electric bill? (Household - for ages 0-17 years) Not on file 07/19/2024 Does your family have access to good internet? (Household - for ages 0-17 years) Not on file 07/19/2024 Employment Status Answer Date Recorded Are you unemployed or without regular income? Ye s 07/19/2024 Does the household have a re gular source of income? (Household - for ages 0-17 years) Not on file 07/19/2024 Social Connections Answer Date Recorded How often do you feel lonely or isolated from th ose around you? Rarely 07/19/2024 Financial Resource Strain Answer Date R ecorded Do you have any trouble payi ng for your medications, or do you think you might in the future? No 07/19/2024 Does your family have troubl e paying for medicine? (Household - for ages 0-17 years) Not on file 07/19/2024 Transportation Needs Answer Date Record ed Do you have trouble getting a ride to medical visits or work? (Adult - for ages 18 years and over) Not on file 07/19/2024 Does your family have a hard time getting a ride to doctors visits? (Household - for ages 0-17 years) Not on file 07/19/2024 Has lack of transportation k ept you from medical appointments, meetings, work, or from getting things needed for daily living? Check all that apply. No 07/19/2024 Do you (or your family) have trouble finding or paying for a ride (transportation)? (Household - for ages 0-17 years) Not on file 07/19/2024 Housing Stability Answer Date Recorded Do you currently live in a s helter or have no steady place to sleep at night? No 07/19/2024 Do you think you are at risk of becoming homeless? (Adult - for ages 18 years and over) Not on file 07/19/2024 Does your family worry about paying for your home or becoming homeless? (Household - for ages 0-17 years) Not on file 1 09/18/2023 Are you homeless or worried that you might be in the future? No 07/19/2024 Are you (or your family) cordelia eless or worried that you might be in the future? (Household - for ages 0-17 years) Not on file Food Insecurity Answer Date Recorded Do you need food for this week? No 07/19/2024 Are you able to get enough f ood for your family? (Household - for ages 0-17 years) Not on file 07/19/2024 Does your family need food t his week? (Household - for ages 0-17 years) Not on file 07/19/2024 Do you always have enough fo od for your family? (Household - for ages 0-17 years) Not on file 07/19/2024 Food Insecurity Answer Date Recorded Within the past 12 months, y ou worried that your food would run out before you got the money to buy more. Patient declined Within the past 12 months, t he food you bought just didn't last and you didn't have money to get more. Patient declined Do you need food for this week? No 07/19/2024 Estimated Date of Delivery Comme nts Yes 12/15/2024 Based on last me nstrual period of 03/10/2024 (Exact Date) Sex and Gender Information Value Date Recorded Sex Assigned at Female 03/01/2024 5:02 PM EDT Legal Sex Female 5:56 AM EST Gender Identity Female 03/01/2024 5:02 PM EDT Sexual Orientation Choose not to disclose 2023 9:01 PM EDT Occupation Industry Job Start Date Job End Date Teacher Not on file Not on file Not on file documented as of this encounter Last Filed Vital Signs Vital Sign Reading Time Taken Comments Blood Pressure 100/60 11/11/2024 8:40 AM EDT Pulse - - Temperature - - Respiratory Rate - - Oxygen Saturation - - Inhaled Oxygen Concentration - - Weight 73.9 kg (163 lb) 11/11/2024 8:40 AM EDT Height - - Body Mass Index 27.12 09/03/2024 11:19 AM EST documented in this encounter Progress Notes * Mary Cobb CRNP - 11/11/2024 8:55 AM EDT 35w1d Good movement. No regular ctx or LOF/bleeding. May have 6-7 contractions in an hour but inconsistent in timing. Staying well hydrated. Requests cervical exam - external os 1 cm, internal os closed, cervix long. Reviewed glucose readings, majority within range. Discussed GDM diet, handout provided. Provided with instructions for hypoglycemia. 1 week return with GBS. Reviewed labor signs and FKC. Technology Infusion Specialist Documentation Provider requested practice physician. Name of practice physician: LI Napier * Amara Camara LPN - 11/11/2024 8:39 AM EDT 35w1d Denies vaginal bleeding/rom + movement documented in this encounter Nursing Notes * Therese Zambrano RN - 11/11/2024 9:22 AM EDT Patient seen by [facility] [employer]. Having pelvic pain, pain with kicks. Notes varicosities in vaginal area. Discussed compression stockings. documented in this encounter Miscellaneous Notes * Assessment & Plan Note - Therese Zambrano RN - 11/11/2024 9:22 AM EDT Associated Problem(s): Health counseling Problem Action Taken Date entered Entered by Date resolved Current needs or questions Patient denies having any current needs or questions 11/11/2024 Therese Zambrano RN 11/08/2024 documented in this encounter Plan of Treatment Upcoming Encounters Date Type Department Care Team (Late st Contact Info) Description 11/18/2024 10:45 AM EDT Office Visit Gynecology/Obstetrics Aubrey Cerda [address] [place] [phone] [place], LI Villar [address] [place] [phone] Nurse Prashant [facility] Return Good [address] [place] [phone] 05/02/2025 2:15 PM EDT Office Visit Hematology/Oncology State [facility] Wolff [address] [place] [phone] Nely Thompson MD [address] [place] [id number] Health Maintenance Due Date Last Done Comments Pneumococcal Vaccine: Pediatrics (0 to 5 Years) and At-Risk Patients (6 to 18 Years and 19+ Years) (1 of 2 - PCV) 2005 Depression Monitoring 02/09/2021 02/10/2020 COVID-19 Vaccine (2 - 2024-25 season) 2024 10/14/2020 Influenza Vaccine (FLU shot) (#1) 2024 07/15/2009, 06/30/2008, 06/15/1998 Pap Smear 09/16/2025 09/16/2022, 03/0 03/2018, 08/24/2015, Additional history exists Diabetes Screening 05/21/2027 05/21/2024, 0 03/13/2020, 03/05/2020, Additional history exists Cervical Cancer Screening 09/16/2027 HPV/Co-Test 09/16/2027 09/16/2022 DTap/Tdap Vaccines (6 - Td or Tdap) 09/27/2034 09/27/2024, 05/25/2015, 04/01/2014, Additional history exists Hepatitis B Vaccine Completed 12/29/1998, 07/17/1998, 06/15/1998 HPV (Gardasil) Vaccine Completed 6, 08/03/2005, 06/03/2005 MENINGOCOCCAL (MENACTRA/MENVEO) Aged Out No longer eligible based on patient's age to complete this topic Meningitis B Vaccine (Bexsero/Trumemba) Aged Out No longer eligible based on patient's age to complete this topic documented as of this encounter Medical Devices Not on filedocumented as of this encounter Visit Diagnoses Diagnosis Supervision of high risk in first trimester- Primary Unspecified high-risk 9 weeks gestation of state, incidental Multigravida of advanced maternal age in first trimester Von Willebrand's disease (HCC) Von Willebrand's disease Bipolar disease during , antepartum (HCC) History of pre-eclampsia in prior , currently with other poor obstetric history History of delivery, currently with history of pre-term labor Family history of congenital anomaly Family history of congenital anomalies Vapes nicotine containing substance History of asthma Personal history of other diseases of respiratory system Psychogenic nonepileptic seizure Medical marijuana use Encounter for long-term (current) use of other medications Family history of autism Family history of psychiatric condition Encounter for supervision of other normal in third trimester- Primary History of pre-eclampsia in prior , currently with other poor obstetric history History of asthma Personal history of other diseases of respiratory system Von Willebrand's disease (HCC) Von Willebrand's disease Family history of autism Family history of psychiatric condition Health counseling Other specified counseling with history of ectopic , antepartum Vapes nicotine containing substance Family history of congenital anomaly Family history of congenital anomalies History of delivery, currently with history of pre-term labor Psychogenic nonepileptic seizure Medical marijuana use Encounter for long-term (current) use of other medications Low-lying placenta Hemorrhage from placenta previa, unspecified as to episode of care Need for twqgzofbhw-sbepxag-olsqswtan (Tdap) vaccine Need for prophylactic vaccination with combined pewyslusql-ghqzygv-tnytzzybm (DTP) vaccine Heartburn during in third trimester High-risk in third trimester- Primary Von Willebrand's disease (HCC) Von Willebrand's disease Bipolar disease during in third trimester (HCC) History of pre-eclampsia in prior , currently with other poor obstetric history History of asthma Personal history of other diseases of respiratory system Family history of autism Family history of psychiatric condition Health counseling Other specified counseling Multigravida of advanced maternal age in third trimester with history of ectopic , antepartum Vapes nicotine containing substance Family history of congenital anomaly Family history of congenital anomalies History of delivery, currently with history of pre-term labor Psychogenic nonepileptic seizure Medical marijuana use Encounter for long-term (current) use of other medications Diet controlled gestational diabetes mellitus (GDM) in third trimester High-risk in third trimester- Primary Von Willebrand's disease (HCC) Von Willebrand's disease Bipolar disease during in third trimester (HCC) History of pre-eclampsia in prior , currently with other poor obstetric history History of asthma Personal history of other diseases of respiratory system Family history of autism Family history of psychiatric condition Health counseling Other specified counseling Multigravida of advanced maternal age in third trimester with history of ectopic , antepartum Vapes nicotine containing substance Family history of congenital anomaly Family history of congenital anomalies History of delivery, currently with history of pre-term labor Psychogenic nonepileptic seizure Medical marijuana use Encounter for long-term (current) use of other medications Diet controlled gestational diabetes mellitus (GDM) in third trimester documented in this encounter Advance Directives * Full Code (Latest Code Status on File) Date Activated Date Inactivated Comments 11/26/2008 12:37 PM 11/30/2008 3:47 PM * Full Code Date Activated Date Inactivated Comments 11/26/2008 5:24 AM 11/26/2008 12:37 PM Care Teams Youth Manager Relationship Specialty Start Date End Date Dayan Le DO [address] [place] [address] PCP - General Family Medicine 05/25/24 documented as of this encounter
--- OUTSIDE RECORDS SUMMARY | 2024-12-14 09:36 | External Medical Summary ---
Author Name Unknown Address Unknown Organization K01:[facility] [address] [place] [address] Laboratory Report Ordering Provider Test Date Status ROMY HERNANDEZ 11/18/2024 11:20:45 Final Observation Date Value Abnormality Reference (Units ) Status Streptococcus agalactiae DNA [Presence] in Specimen by MAREN with probe detection 11/18/2024 11:20:45 Negative Negative Final No Group B Streptococcus det ected by culture-enhanced PCR (amplified probe). [facility] - [facility] 11/18/2024 11:20:45 0.0 Final GBS SPCCT - [facility] 11/18/2024 11:20:45 31.8 Final Performing Location [facility] [place] [facility] [address] [place] [address]
--- OUTSIDE RECORDS SUMMARY | 2024-12-14 09:36 | External Medical Summary | Summary of Care ---
Author Name Unknown Organization [facility] Address [address] [place] [address] Phone [phone] Care Team Providers Care Transformer Assembly Supervisor Name Role Phone RejijasonDayan DO Primary Care Provider Reason for Visit * Reason Comments Return Visit Encounter Details Date Type Department Care Team (Late st Contact Info) Description 11/18/2024 10:45 AM EDT Office Visit Gynecology/Obstetri Aubrey Cerda [address] [facility] [place] [place] [address] Mary Cobb CRNP [address] [facility] [place] [address] Nurse Iliana Cerda Beginnings Return Good [address] [place] [address] High-risk in third trimester*; Von Willebrand's disease [...] Edema Other,Itching 04/01/2014 Blue Dyes (Parenteral) 11/14/2014 [place] blue dye Dog Dander Wheezing 04/01/2014 Asthma attacks Duloxetine Psych complications High 03/29/2015 Caused manic episode Ethinyl Estradiol High 03/05/2020 Other Reaction(s): breathing problems-asthma flair ups Paroxetine 12/01/2002 somnulence/increase d depression Tretinoin Flushing,Other (Colton bower comment) 01/13/2015 Reddened, flaking skin documented as of this encounter (statuses as of 11/18/2024) Medications QUEtiapine Fumarate ER 150 MG Oral Tablet Extended Release 24 Hour (SEROquel XR) Take 1 Tablet by mouth at bedtime. 90 Tablet 10/15/19 24 Active Additional Information Patient taking differently:150 mg Oral HS,Taking 250mg at night, Reported on 11/18/2024 Albuterol Sulfate (2.5 MG/3ML) 0.083% Inhalation Nebulization Solution (Proventil) Inhale 1 Vial via nebulizer every 4 hours as needed for Wheezing. 120 mL 5 02/24/20 24 Active Desmopressin Acetate [place] 0.01 % Nasal Solution Administer 1 [place] into nostril at bedtime. 5 mL 11 [...] 100 Tablet 3 08/02/20 24 Active Nystatin 755530 UNIT/ML Mouth/Throat Suspension Swish and spit 5 mL in the morning and 5 mL at noon and 5 mL in the evening and 5 mL before bedtime. 60 mL 09/27/19 25 Active Additional Information Patient not taking.Reported on 11/11/2024 LoraxAg System w/Device KitIndications:Ges tational diabetes mellitus (GDM) [...] tongue. 20 Tablet 1 10/26/19 25 Active diazePAM 2 MG Oral Tablet (Valium)Indication s:Bipolar disease during in third trimester (HCC) Take 1 Tablet by mouth every 8 hours as needed for Anxiety. 6 Tablet 11/19/19 25 Active documented as of this encounter (statuses as of 11/18/2024) Active Problems Problem Noted Date Diagnosed Date Gestational diabetes mellitus (GDM) in third [facility] 10/06/2024 Overview (10/25/2024): Diagnosed at 29 weeks, [...] patients who previously received 17P. Patient's primary REINFORCER can coordinate therapy if desired. For patients [...] -specific safety data. Health counseling 05/14/2024 Overview (11/18/2024): Problem Action Taken Date entered Entered by [...] or questions 09/03/2024 Therese Zambrano RN 09/03/2024 Problem Action Taken Date entered Entered by Date resolved GBS Culture obtained 11/18/2024 Diane Figueroa RN 11/18/2024 Assessment & Plan (11/11/2024 9:22 AM EDT): [...] disorder, depression, anxiety, and ADHD Follows with [facility] Reports Psychiatry (Carol Wise) is aware of - has visits q [...] clinical expertise of the mental health clinician, maintenance job titles, primary health care provider, and heavy duty press operator. Safety data related to atypical antipsychotics during [...] VWD in her father Last visit with [facility] in 2018. Reports she had bleeding [...] as of this encounter (statuses as of 11/18/2024) Resolved Problems Problem Noted Date Diagnosed Date [...] Needs 3 hour glucose test 01/19/2016 Chanel Leigh RN 01/19/16 Problem Action Taken Date entered Entered by Date resolved Hip pain Seeing Dr. Gary tomorrow and Ortho as well. 01/31/2016 Therese Zambrano RN Having a son. Planning circumcision. Bipolar disease [...] inactive term Proteinuria 11/25/2008 08/24/2015 Overview (11/25/2008): 11/23 2866 mg protein in 24 hr urine, labs wnl and normotensive, no UTI on recent cx - discussed with MFM-will see on Friday, get labs today and pre-e precautions Antepartum abnormal glucose tolerance of mother 10/07/2008 08/24/2015 Overview (10/14/2008): 1 hr glucola -- 149 3 hr GTT ordered -- OK HBP GW 06/03/2008 08/24/2015 INFORMATION-External labs 06/03/2008 Overview (08/08/2008): Pt is transfer from [facility]-does not have records with her Action/Plan/Outcome: Pap 04/14/08- WNL Pt needs cervical cultures at next visit, not found in [facility] records-chlamydia and gonorrhea neg.08/01 Pt having records resent to our office as we did not receive her testing thus far-discussed at 20w visit documented as of this encounter (statuses as of 11/18/2024) Immunizations Name Administration Dates Next Due COVID-19 [...] have money to get more. Patient declined [place] Depression Scale Answer Date Recorded [place] Depression Scale Total 22 10/25/2024 The thought [...] Reading Time Taken Comments Blood Pressure 100/60 11/18/2024 10:53 AM EDT Pulse - - Temperature - - Respiratory Rate - - Oxygen Saturation - - Inhaled Oxygen Concentration - - Weight 73.9 kg (163 lb) 11/18/2024 10:53 AM EDT Height - - Body Mass Index 27.12 09/03/2024 11:19 AM EST documented in this encounter Progress Notes * Mary Cobb CRNP - 11/18/2024 11:29 AM EDT 36w1d Baby is very active. Has intermittent cramping, no ctx. Denies LOF/bleeding. GDMA 1, met with soft tile setter. Feeling very discouraged - feels she is starving all the time, limited in what she can consume with GDM and her nausea, as well as a recent tooth extraction. Trying to add more protein. Out of 6 days, only 1 elevated fasting level at 95 and 5 elevated 1 hr post-prandial levels (max 167). 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 Finds she has to lie down and apply ice frequently for relief. She has been struggling with anxiety and panic attacks, notes higher blood sugars when this occurs.Psychiatrist has not wanted to increase her doses of seroquel or add back any of her other medications for mood. She sees a therapist weekly. She is crying and very upset today and concerned with theimpact of stress on her baby. Took Ativan infrequently pre- for panic. Offered a referral to see a different psychiatrist for a 2nd opinion, she declines as she does not feel she will be seen before delivery. Discussed that benzodiazepines are typically avoided in . However, must weigh risks/benefits of medication vs maternal health. She is very concerned for recurrence of depression, for which she's been hospitalized in the past. Per UpToDate, agents other than lorazepam are recommended if . Reviewed data from UpToDate with patient: "Diazepam and its metabolites (N-desmethyldiazepam, temazepam, and oxazepam) cross the placenta (Tatyana 1982; Jovon 1994). In-utero exposure to benzodiazepines has the potential to cause harm to the fetus. Teratogenic effects have been observed in some studies; however, a clear association has not been reported and additional data are needed (Bernardo 2013; Crawford 2018; Grederrisandras 2019; Noh 2022; Alesha 2022; Iwona 2019; Doreen 2007). Exposure to a benzodiazepine late in may cause sedation (hypotonia, lethargy, respiratory depression) and/or symptoms of withdrawal (feeding difficulties, hyperreflexia, inconsolable crying, irritability, restlessness, tremors). Data related to long-term effects on neurodevelopment are inconclusive (May 2022; Luisoasya?i? 2017; Terrance 202; Prashanth 202). Newborns exposed to diazepam in utero should be monitored for feeding problems, respiratory depression, sedation, and withdrawal. The short-term use of a long-acting benzodiazepine may be used in patients requiring treatment of acute alcohol withdrawal symptoms (WHO 2014); however, the use of shorter-acting benzodiazepines is preferred in patients at risk for delivery or when treatment is needed during the third trimester (ASAM 2020). Although recommendations vary by guideline, the use of diazepam may be considered when treating patients (BAP [Pili 2017]; SOGC [Graves 2020]; WFSBP/IAWMH [Thibaut 2019]). Monitor newborns for alcohol spectrum disorders in addition to benzodiazepine intoxication (ASAM 2020). Therapy for anxiety during should be individualized. Untreated or inadequately treated psychiatric illness may lead to poor adherence to care and adverse outcomes (ACOG 2008). Benzodiazepines are not preferred when pharmacologic treatment for anxiety disorders is neededduring (BAP [Pili 2017]; Chetan 2015); however, if a benzodiazepine is needed, diazepam may be considered for the treatment of anxiety in patients (based on the trimester of exposure). If possible, avoid scheduled doses of benzodiazepines in the month prior to delivery to reduce the risk of withdrawal symptoms in the (Chetan 2015)." Rx sent for infrequent use, she is agreeable to this. GBS collected today. Recommend pelvic floor PT, list of local providers given. Reviewed blood sugar readings, continue with dietary changes. Discussed ways of getting more protein without raising blood sugars. Discussed role of stress and mental health on blood sugars. IOL scheduled for 40+ weeks. Senior Information Systems Architect Documentation Provider requested registered route associate. Name of registered route associate: Danitza Vides have reviewed the patient’s controlled substance dispensing history in the Prescription Drug Monitoring Program in compliance with the [facility] regulations before prescribing a controlled substance. Last Tox Screen Results: Results for orders placed or performed in visit on 05/14/24 TOXICOLOGY, URINE SCREEN W/ CONFIRMATION Result Value Amphetamines Screen, U Negative Benzodiazepines Screen, U Negative Cannabinoids Screen, U Positive (A) Cocaine Metabolite Screen, U Negative Fentanyl Screen, U Negative Hydrocodone Screen, U Negative Methadone Metabolite Screen, U Negative Morphine/Codeine Screen, U Negative Oxycodone Screen, U Negative Narrative Cutoff Concentrations: Drug Level Amphetamines 500 ng/mL Benzodiazepines 100 ng/mL Cannabinoids 50 ng/mL Cocaine Metabolite 150 ng/mL Fentanyl 1 ng/mL Hydrocodone / Hydromorphone 300 ng/mL Methadone Metabolite 100 ng/mL Morphine / Codeine 300 ng/mL Oxycodone / Oxymorphone 100 ng/mL Screening results are presumptive and can only be used for medical purposes. Positive screening results are reflexed to confirmatory testing. *Note: Due to a large number of results and/or encounters for the requested time period, some results have not been displayed. A complete set of results can be found in Results Review. LI Prieto * Amara Camara LPN - 11/18/2024 10:53 AM EDT 36w1d Denies vaginal bleeding/rom + movement Some contractions nothing consistent documented in this encounter Nursing Notes * Diane Figueroa, RN - 11/18/2024 10:58 AM EDT Patient seen by [facility] Survey Interviewer. The [facility] Coordinator addressed thefollowing concerns GBS culture. have you cut down with your smoking NA have you quit NA have you seen a soft tile setter yes have you seen a social work msw No are you receiving counseling Yes have you received dental care during your Yes are you enrolled in WIC Yes do you receive food stamps or felix assistance Yes Diane Figueroa, NICKI documented in this encounter Plan of Treatment Upcoming Encounters Date Type Department Care Team (Late st Contact Info) Description 11/26/2024 10:00 AM EDT Office Visit Gynecology/Obstetrics [facility] [address] [facility] [place] [address] Mary Cobb CRNP [address] [facility] [address] [place] [address] 05/02/2025 2:15 PM EDT Office Visit Hematology/Oncology [facility] [address] [place] [phone] Nely Thompson MD [address] [facility] [place] [address] Pending Results Name Type Priority Associated Diagnoses Date /Time GROUP B STREP CULTURE/PCR Lab Routine High-risk in third trimester 11/18/2024 11:20 AM EDT Scheduled Orders Name Type Priority Associated Diagnoses Orde r Schedule GROUP B STREP CULTURE/PCR Lab Routine High-risk in third trimester Expected: 11/18/2024, Expires: 11/18/2025 Health Maintenance Due Date Last Done Comments Pneumococcal Vaccine: Pediatrics (0 to 5 Years) and At-Risk Patients (6 to 18 Years and 19+ Years) (1 of 2 - PCV) 2005 Depression Monitoring 02/09/2021 02/10/2020 COVID-19 Vaccine (2 - season) 2024 10/14/2020 Influenza Vaccine (FLU shot) (#1) 2024 07/15/2009, 06/30/2008, 06/15/1998 Pap Smear 09/16/2025 09/16/2022, 03/2018, 08/24/2015, Additional history exists Diabetes Screening [...] as to episode of care Need for qixshwykyq-oaewose-hdtnyiusa (Tdap) vaccine Need for prophylactic vaccination with combined beellnhvrr-iibmlsy-trjrlqwsf (DTP) vaccine Heartburn during in third trimester [...] 5:24 AM 11/26/2008 12:37 PM Care Teams Transformer Assembly Supervisor Relationship Specialty Start Date End Date Dayan Le DO [address] [place] [address] PCP - General Family Medicine 05/25/24 documented as of this encounter
--- OUTSIDE RECORDS SUMMARY | 2024-12-14 09:36 | External Medical Summary | Summary of Care ---
Author Name Unknown Organization [facility] Address [address] [place] [address] Phone [phone] Care Team Providers Care Gang Drill Operator Name Role Phone RejijasonDayan DO Primary Care Provider Reason for Visit * Reason Comments Return Visit Encounter Details Date Type Department Care Team (Late st Contact Info) Description 11/26/2024 10:00 AM EDT Office Visit Gynecology/Obstetric s Aubrey Cerda [address] [place] [address] Mary Cobb CRNP [address] [place] [address] High-risk in third trimester*; Von Willebrand's disease [...] Edema Other,Itching 04/01/2014 Blue Dyes (Parenteral) 11/14/2014 [place] blue dye Dog Dander Wheezing 04/01/2014 Asthma attacks Duloxetine Psych complications High 03/29/2015 Caused manic episode Ethinyl Estradiol High 03/05/2020 Other Reaction(s): breathing problems-asthma flair ups Paroxetine 12/01/2002 somnulence/increase d depression Tretinoin Flushing,Other (Plea se comment) 01/13/2015 Reddened, flaking skin documented as of this encounter (statuses as of 11/26/2024) Medications QUEtiapine Fumarate ER 150 MG Oral Tablet Extended Release 24 Hour (SEROquel XR) Take 1 Tablet by mouth at bedtime. 90 Tablet 10/15/19 24 Active Additional Information Patient taking differently:150 mg Oral HS,Taking 250mg at night, Reported on 11/26/2024 Albuterol Sulfate (2.5 MG/3ML) 0.083% Inhalation Nebulization Solution (Proventil) Inhale 1 Vial via nebulizer every 4 hours as needed for Wheezing. 120 mL 5 02/24/20 24 Active Desmopressin Acetate [place] 0.01 % Nasal Solution Administer 1 [place] into nostril at bedtime. 5 mL 11 [...] 100 Tablet 3 08/02/20 24 Active Nystatin 863037 UNIT/ML Mouth/Throat Suspension Swish and spit 5 mL in the morning and 5 mL at noon and 5 mL in the evening and 5 mL before bedtime. 60 mL 09/27/19 25 Active Additional Information Patient not taking.Reported on 11/11/2024 [place] Flex System w/Device KitIndications:Ges tational diabetes mellitus (GDM) in third trimester, gestational diabetes method of control unspecified Use to test blood sugars 4 times daily (fasting, 1 hour after breakfast, lunch, and dinner) 1 Kit 10/06/19 25 Active [place] In Vitro Strip (Glucose Blood)Indications: Gestational diabetes [...] as of this encounter (statuses as of 11/26/2024) Active Problems Problem Noted Date Diagnosed Date Gestational diabetes mellitus (GDM) in third tri [facility] 10/06/2024 Overview (10/25/2024): Diagnosed at 29 weeks, failed 3 hour gtt MFM and diabetes education referral placed. Pt declined MFM. High-risk 07/07/2024 History of delivery, currently 05/17/2024 Overview (05/18/2024): History of delivery at 36w gestation in 2009 Followed by full-term delivery in 2016 Denies prior Braymer use. Assessment & Plan (05/17/2024 12:24 PM [...] patients who previously received 17P. Patient's primary MOMD TEACHER can coordinate therapy if desired. For patients [...] disorder, depression, anxiety, and ADHD Follows with [facility] Reports Psychiatry (Carol Wise) is aware [...] clinical expertise of the mental health clinician, associate professor of criminal justice, primary health care provider, and delivery driver/supervisor. Safety data related to atypical antipsychotics during [...] Denies episodes while on Lamictal Follows with [facility] Psychiatry Assessment & Plan (05/18/2024 11:34 AM [...] VWD in her father Last visit with [facility] in 2018. Reports she had bleeding [...] as of this encounter (statuses as of 11/26/2024) Resolved Problems Problem Noted Date Diagnosed Date [...] 06/03/2008 Overview (08/08/2008): Pt is transfer from [facility]-does not have records with her Action/Plan/Outcome: Pap 04/14/08- WNL Pt needs cervical cultures at next visit, not found in [facility] records-chlamydia and gonorrhea neg.08/01 Pt having records resent to our office as we did not receive her testing thus far-discussed at 20w visit documented as of this encounter (statuses as of 11/26/2024) Immunizations Name Administration Dates Next Due COVID-19 mRNA, LNP-s, No Pre serve, 2-Dose Series (Pfizer) 10/14/2020 DTP Vaccine 05/25/2015 H1N1 2009 Influenza, IM 07/15/2009 HPV Vaccine, 4-Valent 01/01/2006,08/03/2005,05/25 PPD 06/15/2021, 0,01/14/2018, 015,04/01/2014,10/18/2011 Seasonal Influenza Vac., MDV , IM, 0.5 mL (Fluzone) 06/30/2008 TDAP (age 10 and older)(Boostrix) 04/01/2014 TDAP, Age 7 and older, IM (Adacel) 09/27/2024 documented as of this encounter Social History [...] have money to get more. Patient declined [place] Depression Scale Answer Date Recorded [place] Depression Scale Total 22 10/25/2024 The thought [...] 07/19/2024 Does the household have a re lar source of income? (Household - for ages [...] Reading Time Taken Comments Blood Pressure 100/60 11/26/2024 10:03 AM EDT Pulse - - Temperature - - Respiratory Rate - - Oxygen Saturation - - Inhaled Oxygen Concentration - - Weight 74.5 kg (164 lb 3.2 oz) 11/26/2024 10:03 AM EDT Height - - Body Mass Index 27.32 09/03/2024 11:19 AM EST documented in this encounter Progress Notes * Mary Cobb CRNP - 11/26/2024 10:02 AM EDT 37w2d Reviewed blood sugar readings from [employer] message, most within range. Denies leaking fluid, bleeding, regular ctx. Good movement. Desires salpingectomy ; aware this is permanent. Federal consent signed and given to Ria to scan into EMR. Has not needed to take diazepam - feels just having it on hand is helpful in keeping panic attacks at bay. 1 week return LI Prieto * Amara Camara LPN - 11/26/2024 10:00 AM EDT 37w2d Denies vaginal bleeding/rom + movement No new concerns documented in this encounter Plan of Treatment Upcoming Encounters Date Type Department Care Team (Late st Contact Info) Description 12/03/2024 10:00 AM EDT Office Visit Gynecology/Obstetrics [facility] [address] [place] [address] Mary Cobb CRNP [address] [place] [address] 05/02/2025 2:15 PM EDT Office Visit Hematology/Oncology [facility] [address] [facility] [place] [phone] Nely Thompson MD [address] [facility] [place] [place] [address] Health Maintenance Due Date Last Done Comments Pneumococcal Vaccine: Pediatrics (0 to 5 Years) and At-Risk Patients (6 to 18 Years and 19+ Years) (1 of 2 - PCV) 2005 Depression Monitoring 02/09/2021 02/10/2020 COVID-19 Vaccine (2 - season) 2024 10/14/2020 Influenza Vaccine (FLU shot) (Season Ended) 2025 07/15/2009, 06/30/2008, 06/15/1998 Pap Smear 09/16/2025 09/16/2022, [...] as to episode of care Need for pwwpmynplm-ebcgynd-ajkgwlhfk (Tdap) vaccine Need for prophylactic vaccination with combined adrtexfjsa-hqtcqdf-orhuaenfu (DTP) vaccine Heartburn during in third trimester [...] 5:24 AM 11/26/2008 12:37 PM Care Teams Gang Drill Operator Relationship Specialty Start Date End Date Dayan Le DO [address] [place] [address] PCP - General Family Medicine 05/25/24 documented as of this encounter
--- OUTSIDE RECORDS SUMMARY | 2024-12-14 09:36 | External Medical Summary | Summary of Care ---
Author Name Unknown Organization [facility] Address [address] [place] [address] Phone [phone] Care Team Providers Care Chief Green Officer Name Role Phone RejijasonDayan DO Primary Care Provider Reason for Visit * Reason Comments Return Visit Encounter Details Date Type Department Care Team (Late st Contact Info) Description 11/18/2024 10:45 AM EDT Office Visit Gynecology/Obstetri Aubrey Cerda [address] [facility] [place] [address] Mary Cobb CRNP [address] [place] [address] Nurse Iliana Cerda Beginnings Return Good [address] [place] [address] High-risk in third trimester*; Von Willebrand's disease [...] Edema Other,Itching 04/01/2014 Blue Dyes (Parenteral) 11/14/2014 [place] blue dye Dog Dander Wheezing 04/01/2014 Asthma [...] mL 5 02/24/20 24 Active Desmopressin Acetate [place] 0.01 % Nasal Solution Administer 1 [place] into nostril at bedtime. 5 mL 11 [...] 100 Tablet 3 08/02/20 24 Active Nystatin 238220 UNIT/ML Mouth/Throat Suspension Swish and spit 5 mL in the morning and 5 mL at noon and 5 mL in the evening and 5 mL before bedtime. 60 mL 09/27/19 25 Active Additional Information Patient not taking.Reported on 11/11/2024 P2i System w/Device KitIndications:Ges tational diabetes mellitus (GDM) [...] Date Gestational diabetes mellitus (GDM) in third [facility] 10/06/2024 Overview (10/25/2024): Diagnosed at 29 [...] patients who previously received 17P. Patient's primary CATERING SERVICE MANAGER can coordinate therapy if desired. For patients [...] disorder, depression, anxiety, and ADHD Follows with [facility] Reports Psychiatry (Carol Wise) is aware [...] clinical expertise of the mental health clinician, administrative tech, primary health care provider, and virology teacher. Safety data related to atypical antipsychotics during [...] VWD in her father Last visit with [facility] in 2018. Reports she had bleeding after [...] 06/03/2008 Overview (08/08/2008): Pt is transfer from [facility]-does not have records with her Action/Plan/Outcome: Pap [...] have money to get more. Patient declined [place] Depression Scale Answer Date Recorded [place] Depression Scale Total 22 10/25/2024 The thought [...] ctx. Denies LOF/bleeding. GDMA 1, met with lawyer probate. Feeling very discouraged - feels she is [...] blood sugars. IOL scheduled for 40+ weeks. Logistics Management Specialist Documentation Provider requested systems developer. Name of systems developer: Danitza Vides have reviewed the patient’s controlled substance dispensing history in the Prescription Drug Monitoring Program in compliance with the [facility] regulations before prescribing a controlled substance. Last [...] 11/18/2024 10:58 AM EDT Patient seen by [facility] Milieu Manager. The [facility] Coordinator addressed thefollowing concerns GBS culture. have you cut down with your smoking NA have you quit NA have you seen a lawyer probate yes have you seen a social media editor No are you receiving counseling Yes have you received dental care during your Yes are you enrolled in WIC Yes do you receive food stamps or felix assistance Yes Diane Figueroa, NICKI documented in this encounter Plan of Treatment Upcoming Encounters Date Type Department Care Team (Late st Contact Info) Description 11/26/2024 10:00 AM EDT Office Visit Gynecology/Obstetrics [facility] [address] [facility] [place] [address] Mary Cobb CRNP 132 [facility] [place] [address] 05/02/2025 2:15 PM EDT Office Visit Hematology/Oncology State Chang Wolff [address] [phone] Nely Thompson MD 200 [facility] [place] [address] Pending Results Name Type Priority Associated Diagnoses [...] as to episode of care Need for jjwfiekcmm-xlizpdu-sszvaxzlq (Tdap) vaccine Need for prophylactic vaccination with combined xnjzvcggiu-wagbkyc-wrniuosvp (DTP) vaccine Heartburn during in third trimester [...] 5:24 AM 11/26/2008 12:37 PM Care Teams Chief Green Officer Relationship Specialty Start Date End Date Dayan Le DO [address] [place] [address] PCP - General Family Medicine 05/25/24 documented as of this encounter
--- OUTSIDE RECORDS SUMMARY | 2024-12-14 09:36 | External Medical Summary | Summary of Care ---
Author Name Unknown Organization [facility] Address [address] [place] [address] Phone [phone] Care Team Providers Care Electric Wirer Name Role Phone Dayan Le DO Primary Care Provider Reason for Visit * Reason Comments Return Visit Encounter Details Date Type Department Care Team (Late st Contact Info) Description 11/11/2024 8:45 AM EDT Office Visit Gynecology/Obstetri Aubrey Cerda [address] [facility] [place] [address] Mary Cobb CRNP [address] [place] [address] Nurse Iliana Cerda Beginnings Return Good [address] [place] [address] High-risk in third trimester*; Von Willebrand's disease [...] Edema Other,Itching 04/01/2014 Blue Dyes (Parenteral) 11/14/2014 [place] blue dye Dog Dander Wheezing 04/01/2014 Asthma [...] mL 5 02/24/20 24 Active Desmopressin Acetate [place] 0.01 % Nasal Solution Administer 1 [place] into nostril at bedtime. 5 mL 11 [...] 100 Tablet 3 08/02/20 24 Active Nystatin 098914 UNIT/ML Mouth/Throat Suspension Swish and spit 5 mL in the morning and 5 mL at noon and 5 mL in the evening and 5 mL before bedtime. 60 mL 09/27/19 25 Active Additional Information Patient not taking.Reported on 11/11/2024 Dengi Online System w/Device KitIndications:Ges tational diabetes mellitus (GDM) [...] Date Gestational diabetes mellitus (GDM) in third [facility] 10/06/2024 Overview (10/25/2024): Diagnosed at 29 weeks, [...] patients who previously received 17P. Patient's primary HOUSING COUNSELOR can coordinate therapy if desired. For patients [...] community services Care Management Consult 05/14/2024 Diane Figeuroa RN 05/14/2024 Need for baby supplies Distribute [...] disorder, depression, anxiety, and ADHD [facility] Reports Psychiatry (Carol Barr) is aware of [...] clinical expertise of the mental health clinician, fisheries inspector, primary health care provider, and supervisor boiler repair. Safety data related to atypical antipsychotics during [...] VWD in her father Last visit with [facility] in 2018. Reports she had bleeding after [...] to Nutrition Review 9 months booklet 08/24/15 Chanle Leigh RN 08/24/15 Problem Action Taken Date [...] 06/03/2008 Overview (08/08/2008): Pt is transfer from [facility]-does not have records with her Action/Plan/Outcome: [...] have money to get more. Patient declined [place] Depression Scale Answer Date Recorded [place] Depression Scale Total 22 10/25/2024 The thought [...] with GBS. Reviewed labor signs and FKC. Casework Supervisor Documentation Provider requested concreting supervisor. Name of concreting supervisor: LI Napier * Amara Camara LPN - 11/11/2024 8:39 AM EDT [id number] Denies vaginal bleeding/rom + movement documented in this encounter Nursing Notes * Therese Zambrano RN - 11/11/2024 9:22 AM EDT Patient seen by [facility] Director Of Social Services. Having pelvic pain, pain with kicks. Notes [...] Gynecology/Obstetrics Aubrey Cerda [address] [place] [address] [place], LI Villar [address] [place] [address] Nurse Prashant [facility] Return Good [address] [place] [address] 05/02/2025 2:15 PM EDT Office Visit Hematology/Oncology State Chang Wolff [address] [address] [phone] Nely Thompson MD [address] [place] [address] Health Maintenance Due Date Last Done Comments [...] as to episode of care Need for vrrvafdwpc-bsklmxe-vvsieyxyw (Tdap) vaccine Need for prophylactic vaccination with combined rfdmvgvwqv-ypmhxbz-hefhrrbkk (DTP) vaccine Heartburn during in third trimester [...] 5:24 AM 11/26/2008 12:37 PM Care Teams Electric Wirer Relationship Specialty Start Date End Date Dayan Le DO [address] [place] [address] PCP - General Family Medicine 05/25/24 documented as of this encounter
--- OUTSIDE RECORDS SUMMARY | 2024-12-14 09:36 | External Medical Summary | Summary of Care ---
Author Name Unknown Organization [facility] Address [address] [place] [address] Phone [phone] Care Team Providers Care Mold Shop Supervisor Name Role Phone Dayan Le DO Primary Care Provider Reason for Visit * Reason Comments DSMT INITIAL * Evaluate & Treat - Unlimited Visits (Within 10 days (routine)) - Authorized Specialty Diagnoses / Procedures Referred By Remigio ding Referred To Contact Traffic Signal Technician / Nutrition Services Diagnoses Diet controlled gestational diabetes mellitus (GDM) in third trimester Mary Cobb CRNP [address] [place] [address] Phone: tel: fax: Referral ID Status Reason Start Date Expiration Date Visits Requested Visits Authorized [id number] Authorized Specialty Services Required 11/15/[id number] Encounter Details Date Type Department Care Team (Late st Contact Info) Description 11/17/2024 3:30 PM EDT Telemedicine Nutrition Services [place] [address] [place] [address] Rd [address] [place] [address] Addison Davies, JIMN [address] [place] [address] Diet controlled gestational diabetes mellitus (GDM) in third trimester [O24.410]* Allergies Active Allergy Reactions Criticality Noted Date Comments Bee Venom Edema Other,Itching 04/01/2014 Blue Dyes (Parenteral) 11/14/2014 [place] blue dye Dog Dander Wheezing 04/01/2014 Asthma [...] mL 5 02/24/20 24 Active Desmopressin Acetate [place] 0.01 % Nasal Solution Administer 1 [place] into nostril at bedtime. 5 mL 11 [...] 100 Tablet 3 08/02/20 24 Active Nystatin 234130 UNIT/ML Mouth/Throat Suspension Swish and spit 5 mL in the morning and 5 mL at noon and 5 mL in the evening and 5 mL before bedtime. 60 mL 09/27/19 25 Active Additional Information Patient not taking.Reported on 11/11/2024 cVidya System w/Device KitIndications:Ges tational diabetes mellitus (GDM) [...] Date Gestational diabetes mellitus (GDM) in third [facility] 10/06/2024 Overview (10/25/2024): Diagnosed at 29 weeks, failed 3 hour gtt MFM and diabetes education referral placed. Pt declined MFM. High-risk 07/07/2024 History of delivery, currently 05/17/2024 Overview (05/18/2024): History of delivery at 36w gestation in 2008 Followed by full-term delivery in 2016 Denies [...] patients who previously received 17P. Patient's primary COFFEE BREWER can coordinate therapy if desired. For patients [...] disorder, depression, anxiety, and ADHD Follows with [facility] Reports Psychiatry (Carol Wise) is aware of [...] clinical expertise of the mental health clinician, director financial services, primary health care provider, and front end driver. Safety data related to atypical antipsychotics during [...] Denies episodes while on Lamictal Follows with [facility] Psychiatry Assessment & Plan (05/18/2024 11:34 AM [...] VWD in her father Last visit with [facility] in 2018. Reports she had bleeding after [...] 06/03/2008 Overview (08/08/2008): Pt is transfer from [facility]-does not have records with her Action/Plan/Outcome: Pap [...] have money to get more. Patient declined [place] Depression Scale Answer Date Recorded [place] Depression Scale Total 22 10/25/2024 The thought [...] on file documented as of this encounter Patient Instructions * Patient Instructions* Addison Davies RDN - 11/17/2024 5:28 PM EDT Nutrition: To improve blood glucose control I will accurately measure portions and count carbohydrates for meals and snacks. documented in this encounter Progress Notes * Addison Davies RDN - 11/17/2024 3:30 PM EDT DIABETES SELF-MANAGEMENT TRAINING/INITIAL NOTE Name: Mai Medel Date: 11/17/2024 Patient location: HOME. I was not in a hospital or clinic location. After connecting through [employer], patient was verified with two unique identifiers. Patient (or authorized legal registration representative) was then informed that this was a Telemedicine visit and being conducted confidentially over secure lines. Methods to assure confidentiality were taken. Patient acknowledged consent and understanding of privacy and security of the Telemedicine visit. The patient agreed to participate. Last order of DIABETES MANAGEMENT EDUCATION (ADA) REFERRAL was found on 11/15/2024 from Patient Message on 11/11/2024 No order of CLINICAL NUTRITION AND DIABETES EDUCATION ANNUAL RENEWAL is found. No order of PEDIATRIC DIABETES MANAGEMENT EDUCATION (ADA) REFERRAL OP is found. ADA referral in place? Yes Participant scheduled for 1:1 training due to lack of classes scheduled within 2 months of appointment. What diabetes concerns and/or barriers to care would you like to discuss in your appointment: AUGUSTINA 12/15/24. In your words, what is diabetes? asked/not answered Do you know the risks of uncontrolled diabetes? Yes Do you believe that diabetes can be controlled? Yes Are you ready to make small changes to help with diabetes self-management: Yes What type of diabetes do you have? Gestational Diabetes Mellitus: Are you aware of the post- glucose screening recommendations? Yes Female of childbearing age with any type of diabetes or considering . Yes - What is your understanding of the importance of glycemic control prior to and during ? Is currently Diabetes diagnosis year: GDM 2024. Dx hypoglycemia when young. Did not have GDM with other pregnancies. Do you have a family history of diabetes? Maternal grandfather, maybe Have you had any previous diabetes education? Yes Support systems: Spouse Barriers to care: None Special Needs: None Psychosocial Screening: Lately have you been feeling down, depressed or hopeless most of the day? Asked/Not Answered How Do You Manage Stress? Asked/Not Answered Food Insecurity: Within the past 12 months, I worried whether our food would run out before we got money to buy more. Asked/Not Answered Within the past 12 months, the food we bought just did not last and we did not have money to buy more. Asked/Not Answered Sleep Health: Takes sleep medication. Gets ~6 hours/night. Diabetes Medications: None Monitoring blood glucose, interpreting and using results No A1c available. Self-Monitoring Blood Glucose Source of Information: Participant brought meter/CGM AM today (usually ~7:30AM): 93mg/dL (ranges 80-95mg/dL) 1 hour post-meal past 24h: B: 162mg/dL (2 slices toast w/ pb on one and tiny amount of jelly on other) 1 hour later L: 109mg/dL D: 147mg/dL HS: 136mg/dL Has 1 hour post meal blood glucose >150mg/dL at least once daily. Varies depending on the meal. Educated on macronutrients, fiber, serving size, meal content effect on blood glucose variability. Hypoglycemia?: Has history of hypoglycemia, diagnosed in childhood. Has not had hypoglycemia in . Diet: Describes typical diet history/24-hour recall Doesn't wake up nauseous, but has prescribed Zofran if needed. Her morning Boost shake doesn't makeher nauseous. Is on and off nauseous all day. Aims for carb targets of 15g for snacks and 45g for meals. Has had dental issues and hasn't been able to chew this week due to dental work. Pays attention to serving sizes Craves burgers and is a ketchup lover Occasionally has a coffee with a "teeny" amount of sugar, but doesn't have the sugar if her blood glucose has been high. Balances out with snacks for carb counting. [place] to drink water in first because she didn't grow up drinking it. Is now drinking 8 x 16oz. Bottles of water daily. All breads are whole wheat. Consistent craving is homemade baked zucchini fries with a little bit of breading with a teeny bit of marinara sauce Breakfast: Usually has Boost (regular with Fiber) shake for breakfast. 10g sugar, 31g carbs. ~8-9AM Snacks: Piece of toast with peanut butter usually, sometimes has apple with peanut butter Lunch: Hasn't had lunch today. Varies due to nausea. Sometimes is a second snack. Some days isn't able to eat until 2 or 3PM. Snacks: Sometimes for snack if blood sugar from previous meal was ok she will do 1/2 applesauce cups. Dinner: Burger on pierre roll. Usually eats ~1/4 bun with burger. Drinks: Water, coffee with a smidge of sugar, milk (is drinking a lot less) Supper tonight: Can of campbells chicken noodle soup due to dental work Weight management review: Wt Readings from Last 6 Encounters: 11/11/24 73.9 kg (163 lb) 10/25/24 74.4 kg (164 lb) 09/27/24 76.2 kg (168 lb) 09/03/24 72.6 kg (160 lb) 08/02/24 71.2 kg (157 lb) 07/07/24 70.3 kg (155 lb) Recent weight changes: 18lb weight gain at 36 weeks. Physical Activity: Reports she is essentially on bedrest d/t varicose veins and hip bursitis. ADA STANDARDS OF CARE/BUNDLE MEASURES Diabetes Bundle / Standards of Care: Gestational Diabetes Participant Therapy Management Plan: Hypertension: BP Readings from Last 3 Encounters: 11/11/24 100/60 10/25/24 104/66 09/27/24 100/64 Gestational Diabetes Participant, being monitored by COFFEE BREWER. Dyslipidemia: Lab Results Component Value Date/Time LDL CHOLESTEROL (CALCULATED) - [facility] 105 03/13/2020 09:05 AM LDL CHOLESTEROL (DIRECT MEASURE) - [facility] NOT APPLICABLE 03/13/2020 09:05 AM Lab Results Component Value Date/Time TRIGLYCERIDES - [facility] 92 03/13/2020 09:05 AM CHOLESTEROL - [facility] 181 03/13/2020 09:05 AM HDL CHOLESTEROL - [facility] 58 03/13/2020 09:05 AM Gestational Diabetes Mellitus Participant Kidney function review: Lab Results Component Value Date/Time ESTIMATED GLOMERULAR FILTRATION RATE - [facility] >90 05/21/2024 08:32 AM ESTIMATED GLOMERULAR FILTRATION RATE - [facility] >60.0 03/13/2020 09:05 AM ESTIMATED GLOMERULAR FILTRATION RATE - [facility] >60.0 09/08/2012 12:58 PM No results found for: "ALBUMIN / CREATININE RATIO", "ALBUMIN / CREATININE RATIO, URINE - [facility]" Lab Results Component Value Date/Time PROTEIN/ CREATININE RATIO, URINE - [facility] 71 05/14/2024 11:47 AM Gestational Diabetes Mellitus Participant DSMT/Diabetes MNT Diagnosis: Food and nutrition related knowledge deficit related to gestational diabetes as evidenced by need for further education. DSMT Initial Visit Assessment of Content Areas: Choose the answer that represents the participant's competency in each area. All need to be assessed at initial. Areas taught must match intervention. If content area not assessed and/or intervened today, it will be deferred to future session. Diabetes disease process and treatment process: Needs review (2) Incorporating nutrition management into lifestyle: Needs review (2) Incorporating physical activity into lifestyle: Not assessed (0) Using medications safely: Not assessed (0) Monitoring blood glucose, interpreting and using results: Needs review (2) Prevention, detection, and treatment of acute complications: Comprehends [place] points (3) Prevention, detection, and treatment of chronic complications: Needs review (2) Developing strategies to address psychosocial issues: Comprehends [place] points (3) Developing strategies to promote health/change behavior: Comprehends [place]ios points (3) DSMT/ Diabetes MNT intervention: Nutrition: GDM nutrition: Educated on rationale and guidelines of nutritional management of GDM. Educated on Caffeine recommendations. Emphasis on need for carbohydrate control/consistency with structured meal schedule. Importance of also meeting nutritional needs of reinforced. Participant Selected Behavioral Objective: Nutrition: To improve blood glucose control I will accurately measure portions and count carbohydrates for meals and snacks. Recommended Medication Changes: No changes. Education materials given to participant/caregiver and reviewed during today's visit: None given today Diabetes Self-Management Support:: Apps/Smart Phone Technology: CalorieKing Food Search Possible Future Topics: Content areas that were not assessed in first visit: Medications Time Spent With Patient: Time in: 3:43 PM Time out: 4:43 PM Billing: DSMT: 1 Hour Plan for Return: PRN Participant provided with contact information for Diabetes Care and Food Service Cashier. All isinger providers within the system are able to see [place] [employer] education and outcomes within the participant's electronic medical record. Addison Davies RDN, NUTRITION SERVICES [place] Diabetes Care and Food Service Cashier documented in this encounter Plan of Treatment Upcoming Encounters Date Type Department Care Team (Late st Contact Info) Description 11/18/2024 10:45 AM EDT Office Visit Gynecology/Obstetrics Aubrey Cerda [address] [place] [address] Mary Cobb CRNP [address] [place] [address] Nurse Prashant [facility] Return Good [address] [place] [address] 05/02/2025 2:15 PM EDT Office Visit Hematology/Oncology State Chang Wloff [address] [place] [phone] Nely Thompson MD [address] [facility] [place] [address] Scheduled Referrals Name Type Priority Associated Diagnoses Orde r Schedule DIABETES MANAGEMENT EDUCATION (ADA) REFERRAL Referral Within 10 days (routine) Diet controlled gestational diabetes mellitus (GDM) in third trimester Ordered: 11/15/2024 Health Maintenance Due Date Last Done Comments Pneumococcal Vaccine: Pediatrics (0 to 5 Years) and At-Risk Patients (6 to 18 Years and 19+ Years) (1 of 2 - PCV) 2005 Depression Monitoring 02/09/2021 02/10/2020 COVID-19 Vaccine ( season) 2024 10/14/2020 Influenza Vaccine (FLU shot) [...] as to episode of care Need for iiwczsffpy-dwavgij-kmvfdfqim (Tdap) vaccine Need for prophylactic vaccination with combined kxpejxvsug-jxercwc-gjhzsvryb (DTP) vaccine Heartburn during in third trimester [...] gestational diabetes mellitus (GDM) in third trimester Diet controlled gestational diabetes mellitus (GDM) in third trimester [O24.410]- Primary documented in this encounter Advance Directives * Full Code (Latest Code Status on File) Date Activated Date Inactivated Comments 11/26/2008 12:37 PM 11/30/2008 3:47 PM * Full Code Date Activated Date Inactivated Comments 11/26/2008 5:24 AM 11/26/2008 12:37 PM Care Teams Mold Shop Supervisor Relationship Specialty Start Date End Date Dayan Le DO [address] [place] [address] PCP - General Family Medicine 05/25/24 documented as of this encounter
[2024-12-14] MEDS ORDERED: CALCIUM CARBONATE 500 MG CHEWABLE TAB PO PRN (09:41)
[2024-12-14] MEDS ORDERED: ACETAMINOPHEN 500 MG TAB PO PRN (09:41)
[2024-12-14] MEDS ORDERED: LIDOCAINE 1% LOCAL 20 ML VIAL INFIL PRN (09:41)
[2024-12-14 10:18] LABS: Hematocrit (blood only) 36.7 % (37.0-47.0); Hemoglobin 12.1 g/dl (12.0-16.0); Mean Corpuscular Hemoglobin 29.5 pg (25.0-34.0); Mean Corpuscular Volume 89.5 fL (80.0-100.0); Mean Platelet Volume 9.9 fL (9.4-12.4); Platelet Count 226 K/uL (130-400); RDW Coefficient of Variation 13.5 % (11.5-14.5); RDW Standard Deviation 43.9 fL (36.4-46.3); White Blood Count 10.85 K/ul (4.8-10.8)
--- NOTE | 2024-12-14 10:30 | History & Physical Report ---
Date of Service December 14, 2024 Assessment & Plan (1) von Willebrand disorder: (2) Bipolar 1 disorder: (3) ADD (attention deficit disorder): (4) Seizure: (5) Gestational diabetes mellitus (GDM): Plan: 39-year-old -1-2-2 at 39 weeks and 6 days of gestation presenting today for scheduled duction of labor at term, Vital signs stable afebrile, GBS negative, heart rate reassuring, Cervix unfavorable, Plan to admit, monitor, labs, cervical ripening with Cervidil, History of VWD, will prepare DDAVP ready in case it will be needed for bleeding, All questions were answered. (6) AMA (advanced maternal age) multigravida 35+: (7) Encounter for induction of labor: Admission and Anticipated Discharge Date Admission Date: December 14, 2024 History of Present Illness Primary Care Provider: Krupa Madrid PA-C Patient is a 39-year-old -1-2-2 at 39 weeks and 6 days of gestation who was admitted for induction of labor at term for induction of labor for GDM A1. She has no complaints. She denies contractions, leakage of fluid, vaginal bleeding. She reports good movements. Her has been complicated by, 1.History of Von Willebrand's disease, Per hematology 10/2024: During the delivery, DDAVP should be available in case if she has significant bleeding. Pt uses 5 ml nasal spray QHS 2.History of bipolar disorder, depression, anxiety, and ADHD Follows with [facility] Reports Psychiatry (Carol Wise) is aware of - has visits q 4-6 weeks. Managed on Lamictal and Seroquel Reports she stopped Adderal, Effexor XR, Gabapentin with knowledge of the (~4-5 weeks gestation) under direction of her provider. Reports weekly appointments with therapy Reports having had PP depression requiring hospitalization following her first ; denies history of psychosis. Reports a stable mood in . Denies any suicidal or homicidal ideation. Reports she has a good support system at home. 3. History of asthma, Has not used her inhaler for months 4. History of psychogenic nonepileptic seizures Reports she "blanks out" when they occur on Lamictal Follows with [facility] Psychiatry 5. History of delivery at 36w gestation in 2009 Followed by full-term delivery in 2016 Denies prior [place] use. 6.History of medical marijuana use - stopped with knowledge of the Urine toxicology screen on 05/14/2024 +cannabinoids 7. AMA, NIPT low risk 8. GDMA1, Diet controlled 9. patient has history of nicotine vaping and medical marijuana use before but she stopped both with the knowledge of this . GBS negative Allergies Allergy/AdvReac Type Severity Reaction Status Date / Time paroxetine Allergy Severe GOES Verified 10/30/24 14:47 CATATONIC sumatriptan Allergy Severe BREATHING Verified 10/30/24 14:47 DIFFICULTIES AND BODY SPASM ethinyl estradiol Allergy Intermediate breathing Verified 10/30/24 14:47 problems-asthma flair ups levonorgestrel Allergy Intermediate breathing Verified 10/30/24 14:47 problems-asthma flair ups bee venom protein (honey bee) Allergy Mild SHORTNESS Verified 10/30/24 14:47 OF BREATH dog dander Allergy Mild SHORTNESS Verified 10/30/24 14:47 OF BREATH tretinoin Allergy Mild facial Verified 10/30/24 14:47 flushing duloxetine Allergy Anxiety Verified 12/14/24 10:24 Home Medications Medication Instructions Recorded Confirmed Type albuterol sulfate 90 mcg/actuation 2 puff inhalation Q4H PRN Wheezing 01/26/20 12/14/24 History aerosol inhaler lamotrigine 200 mg tablet 200 mg PO BID 01/26/20 12/14/24 History vit no.133-ferrous 1 tab PO DAILY 06/01/24 12/14/24 History fumarate 28 mg-folic acid 800 mcg tablet () quetiapine 200 mg tablet 150 mg PO HS 06/01/24 12/14/24 History omeprazole [Prilosec] PO 10/30/24 10/30/24 History Patient History Medical History (Updated 12/14/24 @ 10:29 by Sena Steele MD) Ectopic Preeclampsia Seizure Migraine Bipolar 1 disorder ADHD ADD (attention deficit disorder) Asperger syndrome Asthma von Willebrand disorder (04/23/13) Hemophilia A Anxiety Surgical History H/O hernia repair History of tonsillectomy Social History Smoking Status: Never smoker Tobacco Type: E-cigarettes / Vaping Hx Alcohol Use: No Hx Substance Use: Yes Last Used Substance Other:: March 2024 Preferred Language: Occitan Communication Ability: Effective Gear Shaper Set Up Operator Required: No Beliefs That Will Affect Care: None marital status: Current Living Situation: Spouse and Family Current Living Situation Comment: 16 year old, 10 year old, and 8 year old home current occupational status: employed Other Information That Helps Us Care for You: No Feels Safe at Home: Yes Safety Concerns: Feels Safe At This Time Assistive Devices: None OB History she has 2 children one 16-year-old other one is 8 years old they are in [place] with her parents. history of ectopic and [employer] History No history of STDs, no history of chlamydia, gonorrhea, herpes Review of Systems as per Subjective / HPI Physical Exam Constitutional: WD/WN, vitals as above well developed, well nourished and comfortable Gastrointestinal (Abdomen): normal bowel sounds, soft, nontender, no hepatosplenomegaly Genitourinary: normal external appearance OB Exam Abdomen: + vertex Manual OB Exam: + cervical dilation 1 cm, + cervical effacement 10% and + station high ( ballotable had) OB Exam Monitor Tracing: + external uterine monitor used and + category I Results & Data Vital Signs (Past 12 Hours) Vital Signs Temp Pulse Resp BP 12/14/24 09:15 20 12/14/24 09:15 36.8 C 20 12/14/24 08:15 99 H 114/73 Laboratory Results Lab Results 12/14/24 Range/Units 09:54 WBC 10.85 H (4.8-10.8) K/ul RBC 4.10 L (4.20-5.40) M/uL Hgb 12.1 (12.0-16.0) g/dl Hct 36.7 L (37.0-47.0) % MCV 89.5 (80.0-100.0) fL MCH 29.5 (25.0-34.0) pg MCHC 33.0 (32.0-36.0) g/dL RDW Std Deviation 43.9 (36.4-46.3) fL RDW Coeff of Lisa 13.5 (11.5-14.5) % Plt Count 226 (130-400) K/uL MPV 9.9 (9.4-12.4) fL (3) ADD (attention deficit disorder) Attention deficit type: unspecified type Qualified Code(s): F98.8 - Other specified behavioral and emotional disorders with onset usually occurring in childhood and adolescence (5) Gestational diabetes mellitus (GDM) Gestational diabetes mellitus control: diet-controlled Trimester: third trimester Qualified Code(s): O24.410 - Gestational diabetes mellitus in , diet controlled
[2024-12-14 10:47] LABS: Albumin Level 3.3 gm/dl (3.4-5.0); Bilirubin,Total 0.3 mg/dl (0.2-1.0); Calcium 9.1 mg/dl (8.6-10.3); Potassium 3.6 mmol/L (3.5-5.1)
[2024-12-14 10:53] LABS: Albumin Globulin Ratio 1.3 (0.9-2); Creatinine Clr Calc Pharmacy 128.4 ml/min; Globulin 2.6 gm/dl (2.5-4.0); Total Protein 5.9 gm/dl (6.0-8.3)
[2024-12-14] MEDS: DINOPROSTONE 10 MG INSERT PV ONE (11:22)
[2024-12-14 11:46] LABS: Amphetamines+Metham, Urine Neg (Neg); Barbiturates, Urine Neg (Neg); Benzodiazepine, Urine Neg (Neg); Cocaine, Urine Neg (Neg); Fentanyl, Urine Neg (Neg); MDMA (Ecstacy), Urine Neg (Neg); Marijuana, Urine Neg (Neg); Methadone, Urine Neg (Neg); Opiate, Urine Neg (Neg); Phencyclidine, Urine Neg (Neg)
[2024-12-14] MEDS: CALCIUM CARBONATE 500 MG CHEWABLE TAB PO PRN (19:23)
[2024-12-14] MEDS ORDERED: ALBUTEROL HFA 8 GM INHALER INH PRN (21:59)
[2024-12-14] MEDS: BUTORPHANOL TARTRATE 1 MG/ML VIAL ONE (22:33)
[2024-12-14] MEDS: lamoTRIgine 100 MG TAB PO SCH (22:35)
[2024-12-14] MEDS: FAMOTIDINE 20 MG TAB PO SCH (22:50)
--- NOTE | 2024-12-14 22:52 | Obstetrical Progress Note ---
Date of Service December 14, 2024 Assessment & Plan Admission and Anticipated Discharge Date Admission Date: December 14, 2024 Subjective Patient has been feeling painful contractions for the last 1.5 hours. She has jus received 1 mg of Stadol and it helped a little bit VE; 2/ 30%/ -3, posterior, Cervidil is removed. FHR categ I [place] ctxs q2-3 min Discussed with anesthesiology about her, prefers not to give epidural, try with IV pain meds for now Patient had 2 's in the past without epidural I spoke with hematology and they stated her blood work was reassuring on 09/29/2024 They do not recommend anything for now, unless she has pp hemorhage then they recommend 20 mcg DDAVP Pharmacy is aware and will keep DDAVP ready. Continue to monitor closely. Results & Data Vital Signs (Past 12 Hours) Vital Signs Temp Pulse Resp BP 12/14/24 22:42 83 12/14/24 22:42 124/85 12/14/24 19:13 18 12/14/24 19:13 36.6 C 18 12/14/24 19:13 85 12/14/24 19:13 110/70 12/14/24 18:03 18 12/14/24 18:03 18 12/14/24 16:10 20 12/14/24 16:10 20 12/14/24 15:48 93 H 12/14/24 15:48 124/83 12/14/24 15:47 36.7 C 12/14/24 13:30 87 12/14/24 13:30 102/68
[2024-12-15] MEDS ORDERED: BUTORPHANOL TARTRATE 1 MG/ML VIAL IV PRN (00:41)
[2024-12-15] MEDS: BUTORPHANOL TARTRATE 1 MG/ML VIAL IV ONE (00:44)
[2024-12-15] MEDS ORDERED: miSOPROStoL 50 MCG TAB PO SCH (01:00)
[2024-12-15] MEDS: LACTATED RINGER'S 1,000 ML IV PRN (02:17)
--- NOTE | 2024-12-15 02:22 | Anesthesiology Consultation ---
Date of Service December 15, 2024 Assessment & Plan (1) Encounter for pre-operative examination: Chart Review Chart Review: Acceptable Risk for Labor Epidural (vwf and fviii levels normal recently) History Height/Weight Height: 5 ft 5 in Weight: 74.389 kg Allergies Allergy/AdvReac Type Severity Reaction Status Date / Time paroxetine Allergy Severe GOES Verified 10/30/24 14:47 CATATONIC sumatriptan Allergy Severe BREATHING Verified 10/30/24 14:47 DIFFICULTIES AND BODY SPASM ethinyl estradiol Allergy Intermediate breathing Verified 10/30/24 14:47 problems-asthma flair ups levonorgestrel Allergy Intermediate breathing Verified 10/30/24 14:47 problems-asthma flair ups bee venom protein (honey bee) Allergy Mild SHORTNESS Verified 10/30/24 14:47 OF BREATH dog dander Allergy Mild SHORTNESS Verified 10/30/24 14:47 OF BREATH tretinoin Allergy Mild facial Verified 10/30/24 14:47 flushing duloxetine Allergy Anxiety Verified 12/14/24 10:24 Medications Home Medications Medication Instructions Recorded Confirmed Last Taken albuterol sulfate 90 mcg/actuation 2 puff inhalation Q4H PRN Wheezing 01/26/20 12/14/24 Unknown aerosol inhaler lamotrigine 200 mg tablet 200 mg PO BID 01/26/20 12/14/24 12/14/24 vit no.133-ferrous 1 tab PO DAILY 06/01/24 12/14/24 12/14/24 fumarate 28 mg-folic acid 800 mcg tablet () quetiapine 200 mg tablet 150 mg PO HS 06/01/24 12/14/24 12/13/24 omeprazole [Prilosec] PO 10/30/24 10/30/24 Unknown omeprazole 20 mg capsule,delayed 20 mg 12/14/24 12/13/24 release Active Medications Generic Name Dose Route Start Last Admin Trade Name Freq PRN Reason Stop Dose Admin Calcium Carbonate 1,000 mg 12/14/24 19:17 12/14/24 19:23 Calcium Carbonate 500 Mg Chewable Tab PO 01/13/25 09:40 1,000 mg Q8 PRN Administration Indigestion Famotidine 20 mg 12/14/24 22:15 12/14/24 22:50 Famotidine 20 Mg Tab PO 01/13/25 22:14 20 mg BID JENSEN Administration Lactated Ringer's 1,000 mls @ 150 mls/hr 12/14/24 09:41 12/15/24 02:17 Lr IV 12/15/24 09:40 999 mls/hr .[id number] PRN Administration L&D Protocol Protocol Lamotrigine 200 mg 12/14/24 22:00 12/14/24 22:35 Lamotrigine 100 Mg Tab PO 01/13/25 21:59 200 mg BID JENSEN Administration Protocol Past Medical History Medical History (Updated 12/15/24 @ 02:26 by Yasir Crowley MD) Ectopic Preeclampsia Seizure Migraine Bipolar 1 disorder ADHD Asperger syndrome Asthma von Willebrand disorder (04/23/13) Anxiety Past Surgical History Surgical History (Updated 12/15/24 @ 02:25 by Yasir Crowley MD) Hx of unilateral salpingectomy Ectopic Hx of tooth extraction H/O hernia repair History of tonsillectomy Social History Smoking Status: Never smoker Hx Alcohol Use: No Hx Substance Use: Yes substance use type: marijuana Last Used Substance Other:: March 2024 Physical Exam Vital Signs Last Vital Signs Temp 36.8 C 12/14/24 22:42 Pulse 83 12/14/24 22:42 Resp 18 12/14/24 22:42 BP 124/85 12/14/24 22:42 Testing Laboratory Results 12/14/24 09:54 12/14/24 09:54
[2024-12-15] MEDS: fentaNYL citrate PF 100 MCG/2 ML VIAL ONE (02:51)
[2024-12-15] MEDS: LIDOCAINE 2%/EPINEPHRINE 1:200,000 20 ML PF ONE (02:51)
[2024-12-15] MEDS: BUPIVACAINE 0.25% PF 30 ML VIAL ONE (02:51)
[2024-12-15] MEDS: fentANYL 2 MCG/ML BUPIVacaine 0.125%-NSS 100ML BAG ONE (02:55)
[2024-12-15] MEDS ORDERED: SODIUM CHLORIDE 0.9% PF INJ 10 ML VIAL EPI PRN (02:58)
[2024-12-15] MEDS ORDERED: LIDOCAINE 2% MPF LOCAL 5 ML VIAL EPI PRN (02:58)
[2024-12-15] MEDS ORDERED: ROPIVACAINE 0.5% PF 5 MG/ML 20 ML VIAL EPI PRN (02:58)
[2024-12-15] MEDS ORDERED: BUPIVACAINE 0.25% PF 30 ML VIAL EPI PRN (02:58)
[2024-12-15] MEDS ORDERED: fentaNYL citrate PF 100 MCG/2 ML VIAL EPI PRN (02:58)
[2024-12-15] MEDS ORDERED: NALOXONE HCL 1 MG in SODIUM CHLORIDE 0.9% 1,000 ML IV PRN (02:58)
[2024-12-15] MEDS ORDERED: fentANYL 2 MCG/ML BUPIVacaine 0.125%-NSS 100ML BAG EPI PRN (02:58)
[2024-12-15] MEDS ORDERED: NALOXONE HCL 0.4 MG/1 ML VIAL/CARP IV PRN (02:58)
--- NOTE | 2024-12-15 03:26 | Obstetrical Progress Note ---
Date of Service December 15, 2024 Assessment & Plan Admission and Anticipated Discharge Date Admission Date: December 14, 2024 Subjective Patient has received 2 doses of IV Stadol for pain. Second 1 did not help much and she requested epidural for pain. Dr. Crowley was called and he came in and placed epidural for pain. Now she is comfortable, heart rate category 1, [place] contractions every 2 to 3 minutes, Continue to monitor closely augment contractions with oxytocin per protocol when they spaced out. Results & Data Vital Signs (Past 12 Hours) Vital Signs Temp Pulse Resp BP Pulse Ox 12/15/24 03:24 72 87/54 L 12/15/24 03:19 76 90/53 L 99 12/15/24 03:15 67 101/60 12/15/24 03:14 67 69/44 L 100 12/15/24 03:09 90 96 12/15/24 03:08 81 106/64 12/15/24 03:04 87 98 12/15/24 03:01 92 H 97/59 L 12/15/24 02:59 94 12/15/24 02:59 108 H 12/15/24 02:59 105 H 104/66 94 12/15/24 02:57 99 H 90/65 L 12/15/24 02:55 86 110/77 12/15/24 02:54 88 97 12/15/24 02:53 72 108/70 12/15/24 02:49 92 H 98 12/15/24 02:44 102 H 98 12/15/24 02:43 78 92 12/15/24 02:39 87 99 12/15/24 02:34 87 98 12/15/24 02:29 89 96 12/15/24 02:24 96 H 96 12/15/24 02:20 88 124/92 12/15/24 02:19 90 97 12/14/24 22:42 18 12/14/24 22:42 36.8 C 18 12/14/24 22:42 83 12/14/24 22:42 124/85 12/14/24 19:13 18 12/14/24 19:13 36.6 C 18 12/14/24 19:13 85 12/14/24 19:13 110/70 12/14/24 18:03 18 12/14/24 18:03 18 12/14/24 16:10 20 12/14/24 16:10 20 12/14/24 15:48 93 H 12/14/24 15:48 124/83 12/14/24 15:47 36.7 C
[2024-12-15] MEDS: ONDANSETRON INJ 2 MG/ML 2 ML VIAL IV PRN (04:11)
[2024-12-15] MEDS: ePHEDrine sulfate 50 MG/ML AMP ONE (04:43)
[2024-12-15] MEDS: SODIUM CHLORIDE 0.9% PF INJ 10 ML VIAL ONE (04:43)
[2024-12-15] MEDS: ePHEDrine sulfate 50 MG/ML AMP IV PRN (04:50)
[2024-12-15] MEDS: OXYTOCIN 30 UNITS/NSS 30 UNITS/500 ML BAG IV PRN ×2 (05:06→10:56)
[2024-12-15] MEDS ORDERED: BENZOCAINE 20% SPRY 85 APPLN/85 GM CAN EXT PRN (10:22)
[2024-12-15] MEDS ORDERED: bisacodyL 10 MG SUPP PR PRN (10:22)
[2024-12-15] MEDS ORDERED: oxyCODONE/ACETAMINOPHEN 5mg/325mg TAB PO PRN (10:22)
[2024-12-15] MEDS ORDERED: OXYTOCIN 30 UNITS/NSS 30 UNITS/500 ML BAG IV PRN (10:22)
[2024-12-15] MEDS ORDERED: HYDROCORTISONE ACETATE 25 MG SUPP PR PRN (10:22)
--- NOTE | 2024-12-15 10:28 | Delivery Summary ---
Vaginal Delivery Summary Date of Service December 15, 2024 Vaginal Delivery Summary Patient was brought in for induction of labor at 40 weeks gestation. Patient has a history of von Willebrand's disease. The plan is to treat her only if she has heavy vaginal bleeding . Induction went smoothly. Patient ruptured membranes spontaneously at about 8 cm. Patient went to full dilatation. With about 3 pushes pushed out a live female via direct occiput anterior position over an intact perineum. Placenta was delivered using IV Pitocin and IM Methergine. Placenta delivered without difficulty. Perineum was intact. Calculated blood loss was 225 mL. Patient tolerated delivery well.
[2024-12-15] MEDS: METHYLERGONOVINE MALEATE 0.2 MG/ML AMP IM ONE (10:33)
--- NOTE | 2024-12-15 10:48 | Anesthesia Procedure Note ---
Date of Service December 15, 2024 Anesthesia Post Epidural Note Vital Signs Vital Signs: Temp Pulse Resp BP Pulse Ox 36.9 C 93 H 16 110/72 100 12/15/24 09:00 12/15/24 10:35 12/15/24 09:00 12/15/24 10:35 12/15/24 10:19 Notes Mental Status: alert / awake / arousable and participated in evaluation Patient Amnestic to Procedure: No Nausea / Vomiting: adequately controlled Pain: adequately controlled Airway Patency, RR, SpO2: stable & adequate BP & HR: stable & adequate Hydration State: stable & adequate Neuraxial Anesthesia: was administered and sensory block is resolving Anesthetic Complications: no major complications apparent and Pt Satisfied with anesthetic care Epidural: Removed without complications and With tip intact
[2024-12-15] MEDS: IBUPROFEN 600 MG TAB PO PRN (10:55)
[2024-12-15] MEDS: PRENATAL VITAMIN 1 TAB PO SCH (11:10)
[2024-12-15] MEDS: BUPIVACAINE 0.25% PF 30 ML VIAL EPI STA (11:45)
[2024-12-15] MEDS: BUTORPHANOL TARTRATE 1 MG/ML VIAL IV STA (11:45)
[2024-12-15] MEDS: fentaNYL citrate PF 100 MCG/2 ML VIAL EPI STA (11:45)
[2024-12-15] MEDS: LIDOCAINE 2%/EPINEPHRINE 1:200,000 20 ML PF EPI STA (11:46)
[2024-12-15] MEDS: SODIUM CHLORIDE 0.9% PF INJ 10 ML VIAL EPI STA (11:46)
[2024-12-15] MEDS: DIPHTHER/TETAN/PERTUS Vaccine (Tdap, Adol/Adult) 0.5mL IM ONE (11:47)
[2024-12-15] MEDS: ACETAMINOPHEN 325 MG TAB PO PRN (13:06)
[2024-12-15] MEDS ORDERED: SODIUM CHLORIDE 0.9% 100 ML IV PRN (14:09)
[2024-12-15] MEDS: DESMOPRESSIN ACETATE 20 MCG in SODIUM CHLORIDE 0.9% 50 ML IV PRN (14:39)
[2024-12-15] MEDS ORDERED: METHYLERGONOVINE MALEATE 0.2 MG/ML AMP ONE (15:09)
[2024-12-15] MEDS: QUEtiapine FUMARATE 25 MG TABLET PO SCH (20:03)
[2024-12-15] MEDS: DOCUSATE SODIUM 100 MG CAP PO SCH (20:11)
[2024-12-16] MEDS: ACETAMINOPHEN W/CODEINE #3 1 TAB PO PRN (00:20)
[2024-12-16 07:32] LABS: Hematocrit (blood only) 35.4 % (37.0-47.0); Hemoglobin 11.7 g/dl (12.0-16.0); Mean Corpuscular Hemoglobin 29.8 pg (25.0-34.0); Mean Corpuscular Hgb Conc 33.1 g/dL (32.0-36.0); Mean Corpuscular Volume 90.3 fL (80.0-100.0); Platelet Count 214 K/uL (130-400); RDW Coefficient of Variation 13.5 % (11.5-14.5); RDW Standard Deviation 44.6 fL (36.4-46.3); Red Blood Count 3.92 M/uL (4.20-5.40); White Blood Count 12.47 K/ul (4.8-10.8)
[2024-12-16] MEDS ORDERED: PRENATAL VITAMIN 1 TAB PO SCH (08:00)
[2024-12-16 08:43] VITALS: RESP 17
--- NOTE | 2024-12-16 08:51 | Obstetrical Progress Note ---
Date of Service December 16, 2024 Subjective Ambulation: ambulating normally Voiding: no voiding problems Passing Gas:: Yes Diet Tolerance:: regular diet Lochia:: Small Feeding Type:: breast feeding Current Pain Level(1-10): 0 doing well. wants to go home. Physical Exam Constitutional WD/WN, vitals as above Gastrointestinal (Abdomen) Inspection/Auscultation: abdomen normal to inspection abdomen soft and non-tender. fundus firm below U. Musculoskeletal Extremities: extremities normal to inspection Skin no rashes, warm and dry Neurologic patellar DTR's 2+ bilat, sensation intact Psychiatric A+Ox3, euthymic affect Results & Data Vital Signs (Past 12 Hours) Vital Signs Temp Pulse Resp BP Pulse Ox O2 Del Method 12/16/24 07:30 36.4 C L 70 17 115/70 96 Room Air 12/16/24 03:15 36.6 C 84 18 97/65 L 97 Room Air 12/15/24 23:25 36.4 C L 89 18 98/63 L 98 Room Air Laboratory Results 12/14/24 12/14/24 12/14/24 09:54 10:50 11:26 WBC 10.85 H RBC 4.10 L Hgb 12.1 Hct 36.7 L MCV 89.5 MCH 29.5 MCHC 33.0 RDW Std Deviation 43.9 RDW Coeff of Lisa 13.5 Plt Count 226 MPV 9.9 Sodium 137 Potassium 3.6 Chloride 106 Carbon Dioxide 26 Anion Gap 5 BUN 9 Creatinine 0.60 Est Cr Clr Drug Dosing 128.4 eGFR 117.75 BUN/Creatinine Ratio 15.0 Glucose 85 POC Glucose 81 Calcium 9.1 Total Bilirubin 0.3 AST 15 ALT 12 Alkaline Phosphatase 133 H Total Protein 5.9 L Albumin 3.3 L Globulin 2.6 Albumin/Globulin Ratio 1.3 Urine Opiates Screen Neg Ur Methadone, Qual Neg Urine Fentanyl Screen Neg Urine Barbiturates Neg Ur Phencyclidine (PCP) Neg U Amphetamin/Meth Scrn Neg MDMA (Ecstasy) Screen Neg U Benzodiazepines Scrn Neg Ur Cocaine Metabolite Neg U Marijuana (THC) Screen Neg Treponema pallidum Ab Negative Blood Type A Positive Antibody Screen NEGATIVE Crossmatch See Detail 12/16/24 06:59 WBC 12.47 H RBC 3.92 L Hgb 11.7 L Hct 35.4 L MCV 90.3 MCH 29.8 MCHC 33.1 RDW Std Deviation 44.6 RDW Coeff of Lisa 13.5 Plt Count 214 MPV 10.0 Sodium Potassium Chloride Carbon Dioxide Anion Gap BUN Creatinine Est Cr Clr Drug Dosing eGFR BUN/Creatinine Ratio Glucose POC Glucose Calcium Total Bilirubin AST ALT Alkaline Phosphatase Total Protein Albumin Globulin Albumin/Globulin Ratio Urine Opiates Screen Ur Methadone, Qual Urine Fentanyl Screen Urine Barbiturates Ur Phencyclidine (PCP) U Amphetamin/Meth Scrn MDMA (Ecstasy) Screen U Benzodiazepines Scrn Ur Cocaine Metabolite U Marijuana (THC) Screen Treponema pallidum Ab Blood Type Antibody Screen Crossmatch
[2024-12-16 09:04] VITALS: BP 122/87; PULSE 99; TEMP 98.1; O2SAT 100
[2024-12-16] MEDS ORDERED: bisacodyL 5 MG TABEC PO SCH (20:00)
== END 2024-12-16 12:00 | disposition home or self-care (01) | DRG 806 ==
LOC: 4S1 07:42 → 4E2 12-15 13:00
DX: O99.344 Other mental disorders complicating childbirth; Z3A.39 39 weeks gestation of pregnancy; F90.9 Attention-deficit hyperactivity disorder, unspecified type; D68.00 Von Willebrand disease, unspecified; O24.410 Gestational diabetes mellitus in pregnancy, diet controlled; F31.9 Bipolar disorder, unspecified; F41.9 Anxiety disorder, unspecified; Z37.0 Single live birth; O99.12 Other diseases of the blood and blood-forming organs and certain disorders involving the immune mechanism complicating childbirth; Z88.8 Allergy status to other drugs, medicaments and biological substances